=== PATIENT | female | born 1990 | race Caucasian/White ===

== ENCOUNTER 2017-06-10 17:07 | Emergency (ER) | payer BC, OTHER ==
--- NOTE | 2017-06-10 17:47 | ER Document Report ---
ED Medical Screen (RME) - General Chief Complaint: Lower abdominal pain, fever Stated Complaint: ABDOMINAL PAIN Time Seen by Provider: 06/10/17 17:46 TRAVEL OUTSIDE OF THE [place] IN LAST 30 DAYS: No - Related Data Allergies/Adverse Reactions: butorphanol [From Stadol] Allergy (Verified 06/10/17 17:43) Past Medical History Renal/ Medical History: Denies: Hx Peritoneal Dialysis Physical Exam - Vital signs Vitals: Temp Pulse Resp BP Pulse Ox 101.7 F H 106 H 16 128/79 H 100 06/10/17 17:23 06/10/17 17:23 06/10/17 17:23 06/10/17 17:23 06/10/17 17:23 Course - Re-evaluation Re-evalutation: 06/10/17 17:52 27-year-old female who is 15 weeks presents with complaints of fever abdominal pain right rib pain. Patient denies any urinary complaints Patient took 500 mg of Tylenol at 2:30 PM Currently denies any chest pain shortness of breath I have greeted and performed a rapid initial assessment of this patient. A comprehensive ED assessment and evaluation of the patient, analysis of test results and completion of the medical decision making process will be conducted by additional ED providers. PHYSICAL EXAMINATION: GENERAL: Well-appearing, well-nourished and in no acute distress. HEAD: Atraumatic, normocephalic. EYES: Pupils equal round extraocular movements intact, conjunctiva are normal. ENT: Nares patent NECK: Normal range of motion LUNGS: No respiratory distress Musculoskeletal: Normal range of motion NEUROLOGICAL: Normal speech, normal gait. PSYCH: Normal mood, normal affect. SKIN: Warm, Dry, normal turgor, no rashes or lesions noted. - Vital Signs Vital signs: Temp Pulse Resp BP Pulse Ox 101.7 F H 106 H 16 128/79 H 100 06/10/17 17:23 06/10/17 17:23 06/10/17 17:23 06/10/17 17:23 06/10/17 17:23
[2017-06-10] MEDS ORDERED: ACETAMINOPHEN 325 MG TABLET PO ONE ×2 (17:51→18:22)
[2017-06-10 18:21] LABS: ABSOLUTE LYMPHOCYTES (AUTO) 1.4 10^3/uL (0.5-4.7); ABSOLUTE MONOCYTES (AUTO) 0.7 10^3/uL (0.1-1.4); ABSOLUTE NEUT (AUTO) 7.3 10^3/uL (1.7-8.2); BASOPHILS % (AUTO) 0.5 % (0-2); EOSINOPHILS % (AUTO) 0.2 % (0-6); HEMATOCRIT 41.3 % (36.0-47.0); HEMOGLOBIN 14.1 g/dL (12.0-15.5); LYMPHOCYTES % (AUTO) 14.5 % (13-45); MEAN CORPUSCULAR HEMOGLOBIN 30.9 pg (27.0-33.4); MEAN CORPUSCULAR HGB CONC 34.3 g/dL (32.0-36.0); MEAN CORPUSCULAR VOLUME 90 fl (80-97); MONOCYTES % (AUTO) 7.3 % (3-13); RED BLOOD COUNT 4.58 10^6/uL (3.72-5.28); RED CELL DISTRIBUTION WIDTH 14.2 % (11.5-14.0); SEGMENTED NEUTROPHILS % (AUTO) 77.5 % (42-78); WHITE BLOOD COUNT 9.5 10^3/uL (4.0-10.5)
[2017-06-10] MEDS ORDERED: NORMAL SALINE 1000 ML 1,000 ML IV ONE (18:21)
[2017-06-10 18:25] LABS: APPEARANCE,URINE SLIGHTLY-CLOUDY; BILIRUBIN,URINE NEGATIVE (NEGATIVE); GLUCOSE, URINE NEGATIVE (NEGATIVE); KETONES,URINE NEGATIVE (NEGATIVE); LEUKOCYTE ESTERASE,URINE TRACE (NEGATIVE); NITRITE,URINE NEGATIVE (NEGATIVE); PROTEIN,URINE NEGATIVE (NEGATIVE); URINE SPECIFIC GRAVITY 1.024; UROBILINOGEN,URINE NEGATIVE mg/dL (<2.0)
[2017-06-10 18:37] LABS: ALANINE AMINOTRANSFERASE 31 U/L (9-52); ALBUMIN 3.9 g/dL (3.5-5.0); ALKALINE PHOSPHATASE 45 U/L (38-126); ANION GAP 9 (5-19); ASPARTATE AMINO TRANSFERASE 24 U/L (14-36); BILIRUBIN,DIRECT 0.3 mg/dL (0.0-0.4); BILIRUBIN,TOTAL 0.4 mg/dL (0.2-1.3); BLOOD UREA NITROGEN 8 mg/dL (7-20); CALCIUM 9.6 mg/dL (8.4-10.2); CARBON DIOXIDE 24 mmol/L (22-30); CHLORIDE 103 mmol/L (98-107); CREATININE RESULT 0.53 mg/dL (0.52-1.25); GLUCOSE 87 mg/dL (75-110); LIPASE 104.4 U/L (23-300); POTASSIUM 3.6 mmol/L (3.6-5.0); SODIUM 135.8 mmol/L (137-145); TOTAL PROTEIN 7.1 g/dL (6.3-8.2)
--- NOTE | 2017-06-10 18:38 | ER Document Report ---
ED General - General Chief Complaint: Abdominal Pain Stated Complaint: ABDOMINAL PAIN Time Seen by Provider: 06/10/17 17:46 Notes: Patient is a 27-year-old female at 15 weeks by LMP who presents with 36 hours of a fever up to 102.7F at home with associated right lower rib pain. States the pain was present yesterday as a dull, stabbing, severe pain. Nothing improves or worsens the pain. States however the pain has not been present at all today. She has continued however to have a fever today which is what prompted her come to the emergency department. She denies any vomiting, diarrhea, focal abdominal pain, shortness of breath or pleuritic pain. No hemoptysis. No history of similar symptoms in the past. No known sick contacts. She has not seen her primary care doctor regarding today's concerns. Denies any dysuria, cough, shortness of breath, sore throat, vaginal bleeding or discharge. TRAVEL OUTSIDE OF THE [place] IN LAST 30 DAYS: No - Related Data Allergies/Adverse Reactions: butorphanol [From Stadol] Allergy (Verified 06/10/17 17:43) Past Medical History - General Information source: Patient - Social History Smoking Status: Never Smoker Chew tobacco use (# tins/day): No Frequency of alcohol use: None Drug Abuse: None Lives with: Spouse/Significant other Family History: Reviewed & Not Pertinent Renal/ Medical History: Denies: Hx Peritoneal Dialysis Past Surgical History: Reports: Hx Breast Surgery, Hx Section Review of Systems - Review of Systems Notes: Constitutional: Positive for fever. HENT: Negative for sore throat. Eyes: Negative for visual changes. Cardiovascular: Negative for chest pain. Respiratory: Negative for shortness of breath. Gastrointestinal: Negative for abdominal pain, vomiting or diarrhea. Genitourinary: Negative for dysuria. Musculoskeletal: Negative for back pain. Skin: Negative for rash. Neurological: Negative for headaches, weakness or numbness. 10 point ROS negative except as marked above and in HPI. Physical Exam - Vital signs Vitals: Temp Pulse Resp BP Pulse Ox 101.7 F H 106 H 16 128/79 H 100 06/10/17 17:23 06/10/17 17:23 06/10/17 17:23 06/10/17 17:23 06/10/17 17:23 Interpretation: Tachycardic, Febrile Notes: PHYSICAL EXAMINATION: GENERAL: Well-appearing, well-nourished and in no acute distress. HEAD: Atraumatic, normocephalic. EYES: Pupils equal round and reactive to light, extraocular movements intact, sclera anicteric, conjunctiva are normal. ENT: nares patent, oropharynx clear without exudates. Moist mucous membranes. NECK: Normal range of motion, supple without lymphadenopathy LUNGS: Breath sounds clear to auscultation bilaterally and equal. No wheezes rales or rhonchi. HEART: Regular rate and rhythm without murmurs ABDOMEN: Soft, gravid uterus, nontender, normoactive bowel sounds. No guarding , no rebound. No masses appreciated. EXTREMITIES: Normal range of motion, no pitting or edema. No cyanosis. NEUROLOGICAL: No focal neurological deficits. Moves all extremities spontaneously and on command. PSYCH: Normal mood, normal affect. SKIN: Warm, Dry, normal turgor, no rashes or lesions noted. Course - Re-evaluation Re-evalutation: 06/10/17 18:35 Patient presents with 24 hours of right lower rib pain and fever. She is currently 15 weeks by dates. Patient is well in appearance on initial exam in no distress and denies any active pain at this time. In triage she was febrile at 101.7 with mild tachycardia at 106. Her abdominal exam is completely benign without any focal tenderness, rebound or guarding. She has no tenderness in the right upper quadrant, negative Irving's sign. She has no right lower quadrant tenderness rebound or guarding. No flank tenderness. She denies any respiratory symptoms, sore throat, vomiting or diarrhea. Diagnostic considerations include pyelonephritis, acute cholecystitis, cholangitis, cholestasis of , acute hepatitis, right lower lobe pneumonia, and much less likely an acute pulmonary embolus. Unfortunately, patient does not appear to clinically fit with any of these diagnoses at this time. She denies any pleuritic pain, has no pain at time of assessment, no tachypnea, and denies any shortness of breath. This makes the diagnosis of an acute pulmonary embolus unlikely. Likewise patient denies any sputum production or cough making diagnosis of a pneumonia unlikely. Her urinalysis is unremarkable and she denies dysuria making acute pyelonephritis improbable. Again no right upper quadrant abdominal tenderness on examination she denies any association of her pain yesterday with p.o. intake. She is also quite early in her for cholestasis of . Overall low clinical suspicion for cholangitis or acute cholecystitis given patient's overall well appearance and again no tenderness on abdominal exam. Will proceed with a chest x-ray and right upper quadrant ultrasound to better clarify to see if there is any evidence of an acute pneumonia or any acute biliary pathology. 06/10/17 20:24 Laboratories all unremarkable, right upper quadrant ultrasound without evidence of acute cholecystitis or cholestasis of , chest x-ray is clear. OB ultrasound unremarkable. Patient's vitals have normalized. She continues to have any pain, dyspnea or tachycardia. I discussed this case with Dr. Lofton the [employer] on-call who is in agreement that the current workup is appropriate and does not have any additional suggestions at this time. She has recommended that we do start empiric treatment for possible urinary tract infection given trace leuk esterase and a small amount of white blood cells in the urine. I have discussed with the patient at length that we are uncertain if the exact diagnosis at this time and that she needs to be vigilant and return to the emergency department should she have any new or worsening symptoms. She will also follow-up in the women's clinic tomorrow. At this time will discharge with return precautions and follow-up recommendations. Verbal discharge instructions given a the bedside and opportunity for questions given. Medication warnings reviewed. Patient is in agreement with this plan and has verbalized understanding of return precautions and the need for primary care follow-up in the next 24-72 hours. - Vital Signs Vital signs: Temp Pulse Resp BP Pulse Ox 99.8 F 97 20 109/64 101 H 06/10/17 19:48 06/10/17 19:48 06/10/17 19:48 06/10/17 19:48 06/10/17 19:48 - Laboratory Result Diagrams: 06/10/17 18:00 06/10/17 18:00 Laboratory results interpreted by me: 06/10/17 06/10/17 06/10/17 18:00 18:00 18:00 RDW 14.2 H Sodium 135.8 L Ur Leukocyte Esterase TRACE H Urine Ascorbic Acid 40 H Urine HCG, Qual 06/10/17 18:00 RDW Sodium Ur Leukocyte Esterase Urine Ascorbic Acid Urine HCG, Qual POSITIVE H - Diagnostic Test Radiology reviewed: Image reviewed, Reports reviewed Radiology results interpreted by me: 06/10/17 20:25 Chest x-ray: No acute infiltrate or pneumothorax Discharge - Discharge Clinical Impression: Right flank pain Fever Qualifiers: Fever type: unspecified Qualified Code(s): R50.9 - Fever, unspecified Condition: Good Disposition: HOME, SELF-CARE Additional Instructions: The exact cause of your fever is uncertain at this time but may be related to a urinary tract infection. Please take Keflex as prescribed. Please contact women's clinic in the morning to schedule a follow-up appointment. Tell them that Dr. Lofton was consulted by your ER physician and has requested to be evaluated tomorrow in clinic. Return to the emergency department immediately if you have any new or worsening symptoms as we are uncertain of what is causing her fever at this time. Prescriptions: Cephalexin Monohydrate [Keflex 500 mg Capsule] 500 mg PO Q6H 5 Days capsule
[2017-06-10 19:49] VITALS: BP 109/64
--- NOTE | 2017-06-10 19:54 | RADIOLOGY REPORT (SQ) ---
EXAM DESCRIPTION: U/S ABDOMEN LIMITED W/O DOP COMPLETED DATE/TIME: 06/10/2017 7:42 pm REASON FOR STUDY: ruq pain, fever, preg COMPARISON: None. TECHNIQUE: Dynamic and static grayscale images acquired of the abdomen and recorded on PACS. Additio nal selected color Doppler and spectral images recorded. LIMITATIONS: Study is limited somewhat due to overlying bowel gas. FINDINGS: PANCREAS: Limited visualization. No obvious masses. LIVER: No masses. Echotexture normal. LIVER VASCULATURE: Normal directional flow of the main portal vein and hepatic veins. GALLBLADDER: Gallbladder is not well evaluated due to its relatively contracted state. No stones. No rmal wall thickness. No pericholecystic fluid. ULTRASOUND-DETECTED MARRUFO'S SIGN: Negative. INTRAHEPATIC DUCTS AND COMMON DUCT: CBD and intrahepatic ducts normal caliber. No filling defects. INFERIOR VENA CAVA: Normal flow. AORTA: Limited visualization. No obvious aneurysm. RIGHT KIDNEY: Normal size. Normal echogenicity. No solid or suspicious masses. No hydronephrosis. No calcifications. PERITONEAL AND RIGHT PLEURAL SPACE: No ascites or effusions. OTHER: No other significant findings. IMPRESSION: Somewhat limited study as noted above. No significant intra-abdominal abnormalities wer e identified. Other findings as noted above. TECHNICAL DOCUMENTATION: JOB ID: [id number] [employer]- All Rights Reserved
--- NOTE | 2017-06-10 19:55 | RADIOLOGY REPORT (SQ) ---
EXAM DESCRIPTION: CHEST SINGLE VIEW COMPLETED DATE/TIME: 06/10/2017 7:45 pm REASON FOR STUDY: right lower rib pain, fever COMPARISON: None. EXAM PARAMETERS: NUMBER OF VIEWS: One view. TECHNIQUE: Single frontal radiographic view of the chest acquired. RADIATION DOSE: NA LIMITATIONS: None. FINDINGS: LUNGS AND PLEURA: No opacities, masses or pneumothorax. No pleural effusion. MEDIASTINUM AND HILAR STRUCTURES: No masses. Contour normal. HEART AND VASCULAR STRUCTURES: Heart normal in size. Normal vasculature. BONES: No acute findings. HARDWARE: None in the chest. OTHER: No other significant finding. IMPRESSION: NO ACUTE RADIOGRAPHIC FINDING IN THE CHEST. TECHNICAL DOCUMENTATION: JOB ID: [id number]
--- NOTE | 2017-06-10 20:02 | RADIOLOGY REPORT (SQ) ---
EXAM DESCRIPTION: U/S OB 14+ TRNABD 1GES W/O DOP COMPLETED DATE/TIME: 06/10/2017 7:52 pm REASON FOR STUDY: abdominal pain, preg, no prior us COMPARISON: None. TECHNIQUE: Static and Dynamic grayscale imaging performed of gravid uterus using transabdominal appr oach. Additional selected color Doppler and spectral images recorded. All stored on PACS. LIMITATIONS: None. FINDINGS: EGA: 15 weeks 2 days OSVALDO: 11/30/2017 EFW: Not calculated PERCENTILE: Not calculated TYRA: Largest pocket 3.2 cm PLACENTA: Anterior PRESENTATION: Breech ANATOMY: HEART RATE: 133 beats per minute. FOUR CHAMBER HEART: Visualized. THREE VESSEL CORD: Not visualized CORD INSERTION: Visualized. KIDNEYS AND BLADDER: Visualized. Appear normal. STOMACH: Visualized. Appears normal. SPINE: Normal as visualized. BRAIN AND LATERAL VENTRICLES: Visualized. Appear normal. OTHER: No other significant finding. MATERNAL ADNEXA: Maternal ovaries not visualized. CERVICAL LENGTH: 3.6 cm Closed. OTHER: No other significant finding. IMPRESSION: LIVING INTRAUTERINE . ESTIMATED GESTATIONAL AGE 15 weeks 2 days NO VISUALIZED ANOMALIES. Trimester of : Second trimester - 13 weeks 1 day to 27 weeks 6 days. TECHNICAL DOCUMENTATION: JOB ID: [id number] [employer]- All Rights Reserved
[2017-06-10] MEDS ORDERED: CEPHALEXIN 500 MG CAPSULE PO ONE (20:25)
== END 2017-06-10 20:58 | disposition home or self-care (01) ==
LOC: ER 17:07
DX: O26.892 Other specified pregnancy related conditions, second trimester (principal); R10.9 Unspecified abdominal pain; R50.9 Fever, unspecified; R00.0 Tachycardia, unspecified; Z3A.15 15 weeks gestation of pregnancy
CPT/HCPCS: 99284; 96360; 36415; 87086; 83690; 85025; 81025; 87088; 80053; 81001; 71010; 76805; 76705; J7030

== ENCOUNTER 2017-06-22 18:54 | Emergency (ER) | payer BC ==
[2017-06-22 19:10] VITALS: BP 126/77
--- NOTE | 2017-06-22 20:12 | ER Document Report ---
ED General - General Chief Complaint: Abdominal Cramping Stated Complaint: ABDOMINAL PAIN Time Seen by Provider: 06/22/17 19:51 TRAVEL OUTSIDE OF THE [place] IN LAST 30 DAYS: No - HPI Notes: Patient is a 17 week 27-year-old female who presents the ED complaining of pelvic cramping 1 day. Patient states that she called her OB/ GERMAN PROFESSOR who recommended that she comes the ED for evaluation. Pt states that she did have a pap and cultures performed 2 days ago and was told today that those labs were all unremarkable including blood work. Patient states she was seen on 10 June with a fever and was discharged in stable condition. Patient states that that fever/illness has since resolved. The cramping is intermittent. She still eating and drinking without any difficulties. She has not taken any medications for her symptoms. She has not noticed any vaginal bleeding or discharge. She still urinating normally and having normal bowel movements. Denies any headache, fever, URI, sore throat, chest pain, palpitations, syncope, cough, shortness of breath, wheeze, dyspnea, nausea/ vomiting/diarrhea, urinary retention, dysuria, hematuria, or rash. - Related Data Allergies/Adverse Reactions: butorphanol [From Stadol] Allergy (Verified 06/10/17 17:43) Past Medical History - Social History Smoking Status: Never Smoker Family History: Reviewed & Not Pertinent Patient has suicidal ideation: No Patient has homicidal ideation: No Renal/ Medical History: Denies: Hx Peritoneal Dialysis Past Surgical History: Reports: Hx Breast Surgery, Hx Section Review of Systems - Review of Systems Notes: REVIEW OF SYSTEMS: CONSTITUTIONAL : Denies fever, chills, or sweats. Denies recent illness. EENT: Denies eye, ear, throat, or mouth pain or symptoms. Denies nasal or sinus congestion or discharge. Denies throat, tongue, or mouth swelling or difficulty swallowing. CARDIOVASCULAR: Denies chest pain. Denies palpitations or racing or irregular heart beat. Denies ankle edema. RESPIRATORY: Denies cough, cold, or chest congestion. Denies shortness of breath, difficulty breathing, or wheezing. GASTROINTESTINAL: see hpi GENITOURINARY: Denies difficulty urinating, painful urination, burning, frequency, blood in urine, or discharge. FEMALE GENITOURINARY: Denies vaginal bleeding, heavy or abnormal periods, irregular periods. Denies vaginal discharge or odor. MUSCULOSKELETAL: Denies back or neck pain or stiffness. Denies joint pain or swelling. SKIN: Denies rash, lesions or sores. NEUROLOGICAL: Denies confusion or altered mental status. Denies passing out or loss of consciousness. Denies dizziness or lightheadedness. Denies headache. Denies weakness or paralysis or loss of use of either side. Denies problems with gait or speech. Denies sensory loss, numbness, or tingling. Denies seizures. PSYCHIATRIC: Denies anxiety or stress. Denies depression, suicidal ideation, or homicidal ideation. ALL OTHER SYSTEMS REVIEWED AND NEGATIVE. Dictation was performed using [employer] voice recognition software Physical Exam - Vital signs Vitals: Temp Pulse Resp BP Pulse Ox 99 F 89 20 126/77 H 99 06/22/17 19:07 06/22/17 19:07 06/22/17 19:07 06/22/17 19:07 06/22/17 19:07 Notes: PHYSICAL EXAMINATION: GENERAL: Well-appearing, well-nourished and in no acute distress. LUNGS: Breath sounds clear to auscultation bilaterally and equal. No wheezes rales or rhonchi. HEART: Regular rate and rhythm without murmurs, rubs, gallops. ABDOMEN: Soft, nontender, nondistended abdomen. No guarding, no rebound. No masses appreciated. Normal bowel sounds present. No CVA tenderness bilaterally. Extremities: No cyanosis, clubbing, or edema b/l. Peripheral pulses 2+. Capillary refill less than 3 seconds. NEUROLOGICAL: Normal speech, normal gait. Normal sensory, motor exams PSYCH: Normal mood, normal affect. SKIN: Warm, Dry, normal turgor, no rashes or lesions noted. Course - Re-evaluation Re-evalutation: 06/22/17 23:25 Patient is an afebrile, well-hydrated, 17 wk , 27-year-old female who presents the ED with pelvic cramping, not otherwise specified. Vitals are stable. PE otherwise unremarkable at this time. Pt had a pelvic performed with labs 2 days ago which were unremarkable. Urinalysis once unremarkable for any acute pathology. heart tones wnl. Transvaginal ultrasound showed an intrauterine without any acute pathology. Low suspicion/risk for acute appendicitis, bowel obstruction, acute cholecystitis, acute cholangitis, perforated diverticulitis, incarcerated hernia, pancreatitis, perforated ulcer, peritonitis, sepsis, pelvic inflammatory disease, ectopic , tubo- ovarian abscess, ovarian torsion, or other systemic emergent condition at this time. Patient is aware that her condition can change from initial presentation and she needs to monitor symptoms closely and seek medical attention if any acute changes. Conservative measures otherwise for symptoms. Recheck with OBGYN in 1-2 days. Recheck with your PCM in 2-3 days. Return to the ED with any worsening/concerning symptoms otherwise as reviewed in discharge. Patient is in agreement. - Vital Signs Vital signs: Temp Pulse Resp BP Pulse Ox 99 F 89 20 126/77 H 99 06/22/17 19:07 06/22/17 19:07 06/22/17 19:07 06/22/17 19:07 06/22/17 19:07 - Laboratory Laboratory results interpreted by me: 06/22/17 20:42 Urine HCG, Qual POSITIVE H Discharge - Discharge Clinical Impression: Pelvic cramping Condition: Stable Disposition: HOME, SELF-CARE Instructions: Pelvic Pain in ([facility]) Additional Instructions: Maintain adequate fluid and food intake Tylenol as needed for discomfort Cool compresses may help Warm compresses may help Monitor symptoms closely for any acute changes Recheck with the AUT[employer]OTIVE [employer]S COUNTER ASSISTANT in the next 1-2 days recheck with your PCM this week as well Return to the ED with any worsening symptoms and/or development of fever, headache, chest pain, palpitations, syncope, shortness of breath, trouble breathing, abdominal pain, n/v/d, blood in stool/urine, loss of control of bowel /bladder, urinary retention, vaginal bleeding/odor/discharge, worsening pain, or other worsening symptoms that are concerning to you. Referrals: JUAN MIGUEL MANTILLA MD [Primary Care Provider] - Follow up in 3-5 days [facility] - 06/23/17
[2017-06-22 20:54] LABS: APPEARANCE,URINE CLEAR; BILIRUBIN,URINE NEGATIVE (NEGATIVE); GLUCOSE, URINE NEGATIVE (NEGATIVE); KETONES,URINE NEGATIVE (NEGATIVE); LEUKOCYTE ESTERASE,URINE NEGATIVE (NEGATIVE); NITRITE,URINE NEGATIVE (NEGATIVE); PROTEIN,URINE NEGATIVE (NEGATIVE); URINE SPECIFIC GRAVITY 1.005; UROBILINOGEN,URINE NEGATIVE mg/dL (<2.0)
--- NOTE | 2017-06-22 21:28 | RADIOLOGY REPORT (SQ) ---
EXAM DESCRIPTION: U/S OB 14+ TA/1 GEST W/DOPPLER COMPLETED DATE/TIME: 06/22/2017 9:18 pm REASON FOR STUDY: pelvic cramping COMPARISON: 06/10/2017 TECHNIQUE: Static and Dynamic grayscale imaging performed of gravid uterus using transabdominal appr oach. Additional selected color Doppler and spectral images recorded. All stored on PACS. LIMITATIONS: Early gestational age limits evaluation of anatomy. FINDINGS: EGA: 17 weeks 1 day OSVALDO: 06/10/2017 EFW: 190 grams PERCENTILE: Not applicable. Fetus less than or equal to 20 weeks gestation. TYRA: Adequate amount. PLACENTA: Anterior. No previa. PRESENTATION: Breech. ANATOMY: No gross abnormality. MATERNAL ADNEXA: Maternal ovaries not visualized. CERVICAL LENGTH: 3 cm Closed. OTHER: No other significant finding. IMPRESSION: LIVING INTRAUTERINE . ESTIMATED GESTATIONAL AGE 17 WEEKS 4 DAYS NO VISUALIZED ANOMALIES HOWEVER RECOMMEND FORMAL ANATOMIC SURVEY BETWEEN 20 AND 22 WEEKS GESTATIONAL AGE. Trimester of : Second trimester - 13 weeks 1 day to 27 weeks 6 days. TECHNICAL DOCUMENTATION: JOB ID: [id number] [employer]- All Rights Reserved
== END 2017-06-22 23:10 | disposition home or self-care (01) ==
LOC: ER 18:54
DX: O26.892 Other specified pregnancy related conditions, second trimester (principal); R10.2 Pelvic and perineal pain; Z3A.17 17 weeks gestation of pregnancy; Z88.5 Allergy status to narcotic agent
CPT/HCPCS: 76805; 81001; 81025; 93976; 99284

== ENCOUNTER 2017-09-15 14:15 | Outpatient (CLI) | payer BC ==
[2017-09-15 14:57] LABS: APPEARANCE,URINE SLIGHTLY-CLOUDY; BILIRUBIN,URINE NEGATIVE (NEGATIVE); GLUCOSE, URINE NEGATIVE (NEGATIVE); KETONES,URINE NEGATIVE (NEGATIVE); LEUKOCYTE ESTERASE,URINE SMALL (NEGATIVE); NITRITE,URINE NEGATIVE (NEGATIVE); PROTEIN,URINE NEGATIVE (NEGATIVE); URINE SPECIFIC GRAVITY 1.028; UROBILINOGEN,URINE NEGATIVE mg/dL (<2.0)
[2017-09-15 15:11] LABS: URINE BARBITURATES SCREEN NEGATIVE; URINE METHADONE SCREEN NEGATIVE; URINE OPIATES LOW NEGATIVE; URINE PHENCYCLIDINE SCREEN NEGATIVE
--- NOTE | 2017-09-15 17:04 | RADIOLOGY REPORT (SQ) ---
EXAM DESCRIPTION: U/S OB LIMITED COMPLETED DATE/TIME: 09/15/2017 4:41 pm REASON FOR STUDY: 29 weeks with ctx, cervical length COMPARISON: None. TECHNIQUE: Limited transvaginal grayscale ultrasound for evaluation of specific requested obstetrica l parameters. LIMITATIONS: None. FINDINGS: CERVICAL LENGTH: 4.4 cm Closed. FHR: 141 beats per minute. PRESENTATION: Cephalic. OTHER: Anterior placenta greater than 2 cm from the internal cervical os. IMPRESSION: LIMITED OBSTETRICAL ULTRASOUND WITH MEASURED PARAMETERS DELINEATED ABOVE. Trimester of : 3rd trimester. Estimated gestational age 29 weeks, 5 days. TECHNICAL DOCUMENTATION: JOB ID: [id number] [employer]- All Rights Reserved
== END 2017-09-15 17:15 | disposition home or self-care (01) ==
LOC: LC 14:15
PROVIDERS: ATTEND Obstetrics & Gynecology
PROC: 4A1HXCZ Monitoring of Products of Conception, Cardiac Rate, External Approach (ICD-10-PCS; principal; 2017-09-15)
DX: O47.03 False labor before 37 completed weeks of gestation, third trimester (principal); Z3A.29 29 weeks gestation of pregnancy
CPT/HCPCS: 76815; 80307; 81001

== ENCOUNTER 2017-10-16 00:45 | Emergency (ER) | payer BC ==
[2017-10-16 01:00] VITALS: BP 124/74
--- NOTE | 2017-10-16 02:04 | ER Document Report ---
ED Extremity Problem, Upper - General Chief Complaint: Shoulder Pain Stated Complaint: SHOULDER PAIN Time Seen by Provider: 10/16/17 02:01 Mode of Arrival: Ambulatory Information source: Patient Notes: 27 years old female who is 32 weeks presents today with left shoulder pain and left trapezoid muscle region pain for the last few hours. She says from 7:30 last evening. She has been evaluated by computer system technician for a palpitation and heart murmur. Has no history of any coronary artery disease, non-smoker. Pain is increased in intensity by movement of the upper shoulder. Denies any injuries except she has 4-year-old child whom she lived frequently. TRAVEL OUTSIDE OF THE [place] IN LAST 30 DAYS: No - Related Data Allergies/Adverse Reactions: butorphanol [From Stadol] Allergy (Verified 06/10/17 17:43) Past Medical History - Social History Smoking Status: Smoker,Current Status Unk Family History: Reviewed & Not Pertinent Renal/ Medical History: Denies: Hx Peritoneal Dialysis Past Surgical History: Reports: Hx Breast Surgery, Hx Section Review of Systems - Review of Systems Notes: REVIEW OF SYSTEMS: CONSTITUTIONAL : Denies fever, chills, or sweats. Denies recent illness. EENT: Denies eye, ear, throat, or mouth pain or symptoms. Denies nasal or sinus congestion or discharge. Denies throat, tongue, or mouth swelling or difficulty swallowing. CARDIOVASCULAR: Denies chest pain. Denies palpitations or racing or irregular heart beat. Denies ankle edema. RESPIRATORY: Denies cough, cold, or chest congestion. Denies shortness of breath, difficulty breathing, or wheezing. GASTROINTESTINAL: Denies abdominal pain or distention. Denies nausea, vomiting , or diarrhea. Denies blood in vomitus, stools, or per rectum. Denies black, tarry stools. Denies constipation. GENITOURINARY: Denies difficulty urinating, painful urination, burning, frequency, blood in urine, or discharge. FEMALE GENITOURINARY: Denies vaginal bleeding, heavy or abnormal periods, irregular periods. Denies vaginal discharge or odor. MUSCULOSKELETAL: SKIN: Denies rash, lesions or sores. HEMATOLOGIC : Denies easy bruising or bleeding. LYMPHATIC: Denies swollen, enlarged glands. NEUROLOGICAL: Denies confusion or altered mental status. Denies passing out or loss of consciousness. Denies dizziness or lightheadedness. Denies headache. Denies weakness or paralysis or loss of use of either side. Denies problems with gait or speech. Denies sensory loss, numbness, or tingling. Denies seizures. PSYCHIATRIC: Denies anxiety or stress. Denies depression, suicidal ideation, or homicidal ideation. ALL OTHER SYSTEMS REVIEWED AND NEGATIVE. PHYSICAL EXAMINATION: GENERAL: Well-appearing, well-nourished and in no acute distress. HEAD: Atraumatic, normocephalic. EYES: Pupils equal round and reactive to light, extraocular movements intact, conjunctiva are normal. ENT: Nares patent, oropharynx clear without exudates. Moist mucous membranes. NECK: Normal range of motion, supple without lymphadenopathy LUNGS: Breath sounds clear to auscultation bilaterally and equal. No wheezes rales or rhonchi. HEART: Regular rate and rhythm without murmurs Chest wall-examination of the trapezoid muscle distribution on the left side particularly along the scapula sharp tenderness were elicited. And also left paraspinal muscle region. ABDOMEN: Soft, nontender, nondistended abdomen. No guarding, no rebound. No masses appreciated. Female : deferred Musculoskeletal: Normal range of motion, no pitting or edema. No cyanosis. NEUROLOGICAL: Cranial nerves grossly intact. Normal speech, normal gait. Normal sensory, motor exams PSYCH: Normal mood, normal affect. SKIN: Warm, Dry, normal turgor, no rashes or lesions noted. Dictation was performed using [employer] voice recognition software Physical Exam - Vital signs Vitals: Temp Pulse Resp BP Pulse Ox 97.8 F 90 18 124/74 100 10/16/17 00:57 10/16/17 00:57 10/16/17 00:57 10/16/17 00:57 10/16/17 00:57 Course - Re-evaluation Re-evalutation: 10/16/17 02:03 She was explained the reason for the pain and, her was requested to give a gentle massage over the trapezoid muscle distribution on the left side. Applying BenGay on and off and take Tylenol for pain. - Vital Signs Vital signs: Temp Pulse Resp BP Pulse Ox 97.8 F 90 18 124/74 100 10/16/17 00:57 10/16/17 00:57 10/16/17 00:57 10/16/17 00:57 10/16/17 00:57 Discharge - Discharge Clinical Impression: Trapezoid ligament sprain Qualifiers: Encounter type: initial encounter Laterality: left Qualified Code(s): S43.82XA - Sprain of other specified parts of left shoulder girdle, initial encounter Disposition: HOME, SELF-CARE Instructions: Sprain ([facility]) Referrals: JUAN MIGUEL MANTILLA MD [Primary Care Provider] - Follow up as needed
--- NOTE | 2017-10-16 10:59 | EKG REPORT ---
SEVERITY:- BORDERLINE ECG - SINUS RHYTHM PROBABLE LEFT ATRIAL ABNORMALITY : Confirmed by: Britta Graff MD 16-Oct-2017 10:58:07
== END 2017-10-16 02:18 | disposition home or self-care (01) ==
LOC: ER 00:45
DX: S43.82XA Sprain of other specified parts of left shoulder girdle, initial encounter (principal); X58.XXXA Exposure to other specified factors, initial encounter; M25.512 Pain in left shoulder; Z88.8 Allergy status to other drugs, medicaments and biological substances
CPT/HCPCS: 93005; 93010; 99283

== ENCOUNTER 2017-11-21 10:21 | Outpatient (CLI) | payer BC ==
[2017-11-21 11:20] LABS: AMNISURE (ROM) NEGATIVE (NEGATIVE)
[2017-11-21 11:31] LABS: APPEARANCE,URINE SLIGHTLY-CLOUDY; BILIRUBIN,URINE NEGATIVE (NEGATIVE); COLOR,URINE YELLOW; GLUCOSE, URINE NEGATIVE (NEGATIVE); KETONES,URINE 20 mg/dL (NEGATIVE); LEUKOCYTE ESTERASE,URINE TRACE (NEGATIVE); NITRITE,URINE NEGATIVE (NEGATIVE); PROTEIN,URINE 30 mg/dL (NEGATIVE)
[2017-11-21 11:57] LABS: URINE AMPHETAMINES SCREEN NEGATIVE; URINE BARBITURATES SCREEN NEGATIVE; URINE BENZODIAZEPINES SCREEN NEGATIVE; URINE COCAINE SCREEN NEGATIVE; URINE MARIJUANA (THC) SCREEN NEGATIVE; URINE METHADONE SCREEN NEGATIVE; URINE PHENCYCLIDINE SCREEN NEGATIVE
[2017-11-21 12:00] LABS: A TYPE INFLUENZA AG POSITIVE (NEGATIVE); B INFLUENZA AG NEGATIVE (NEGATIVE)
[2017-11-21 12:22] LABS: URINE CREATININE 240.8 mg/dL (16-327); URINE PROTEIN 7.2 mg/dL (<12)
[2017-11-21 12:58] LABS: ABSOLUTE LYMPHOCYTES (AUTO) 0.9 10^3/uL (0.5-4.7); ABSOLUTE MONOCYTES (AUTO) 0.8 10^3/uL (0.1-1.4); ABSOLUTE NEUT (AUTO) 8.4 10^3/uL (1.7-8.2); BASOPHILS % (AUTO) 0.4 % (0-2); EOSINOPHILS % (AUTO) 0.2 % (0-6); HEMATOCRIT 35.2 % (36.0-47.0); LYMPHOCYTES % (AUTO) 9.2 % (13-45); MEAN CORPUSCULAR HEMOGLOBIN 29.1 pg (27.0-33.4); MEAN CORPUSCULAR HGB CONC 34.1 g/dL (32.0-36.0); MEAN CORPUSCULAR VOLUME 85 fl (80-97); MONOCYTES % (AUTO) 8.3 % (3-13); PLATELET COUNT 231 10^3/uL (150-450); RED BLOOD COUNT 4.13 10^6/uL (3.72-5.28); RED CELL DISTRIBUTION WIDTH 16.7 % (11.5-14.0); SEGMENTED NEUTROPHILS % (AUTO) 81.9 % (42-78); TOTAL CELLS COUNTED % (AUTO) 100 %; WHITE BLOOD COUNT 10.2 10^3/uL (4.0-10.5)
[2017-11-21 13:14] LABS: ALANINE AMINOTRANSFERASE 48 U/L (9-52); ALBUMIN 3.2 g/dL (3.5-5.0); ALKALINE PHOSPHATASE 166 U/L (38-126); AMYLASE 55 U/L (30-110); ANION GAP 7 (5-19); ASPARTATE AMINO TRANSFERASE 36 U/L (14-36); BILIRUBIN,DIRECT 0.1 mg/dL (0.0-0.4); BILIRUBIN,TOTAL 0.6 mg/dL (0.2-1.3); BLOOD UREA NITROGEN 4 mg/dL (7-20); CALCIUM 9.3 mg/dL (8.4-10.2); CARBON DIOXIDE 21 mmol/L (22-30); CHLORIDE 105 mmol/L (98-107); GLUCOSE 57 mg/dL (75-110); LDH 449 U/L (313-618); LIPASE 50.1 U/L (23-300); POTASSIUM 4.1 mmol/L (3.6-5.0); SODIUM 133.2 mmol/L (137-145)
[2017-11-21] MEDS ORDERED: OSELTAMIVIR PHOSPHATE 75 MG CAPSULE PO ONE (13:30)
[2017-11-21] MEDS ORDERED: ACETAMINOPHEN 325 MG TABLET ONE (13:51)
--- NOTE | 2017-11-23 09:59 | Non Stress Test Report ---
Non Stress Test Datetime Report Generated by CPN: 11/23/2017 09:59 DEMOGRAPHIC EGA NST: 39.2 INDICATION Indication for Study: Ordered by Provider MONITORING Time on Monitor: 11/21/2017 14:33 Time off Monitor: 11/21/2017 14:58 NST Duration: 25 NST INTERVENTIONS NST Interventions: PO Hydration; IV Fluids; Reposition Patient Physician Notified NST: Dr Lofton BABY A: [id number] BABY A Movement : Present Contraction Frequency : occasional FHR Baseline : 140 Accelerations : 15X15 Decelerations : None Variability : Moderate 6-25bpm NST Review: Meets Criteria for Reactive NST NST Review and Verified By : Jose Stringer RNC NST Results: Reactive NST REPORT Report Trigger: Send Report
[2017-11-23 11:04] LABS: 24 HOUR URINE PROTEIN RESULT 145 mg/day (42-225); URINE PROTEIN 12.7 mg/dL (<12)
== END 2017-11-21 14:56 | disposition home or self-care (01) ==
LOC: LC 10:21
PROVIDERS: ATTEND Student in an Organized Health Care Education/Training Program
PROC: 4A1HXCZ Monitoring of Products of Conception, Cardiac Rate, External Approach (ICD-10-PCS; principal; 2017-11-21)
DX: O14.93 Unspecified pre-eclampsia, third trimester (principal); O99.513 Diseases of the respiratory system complicating pregnancy, third trimester; J11.1 Influenza due to unidentified influenza virus with other respiratory manifestations; Z3A.39 39 weeks gestation of pregnancy
CPT/HCPCS: 59025; 84112; 36415; 82150; 83615; 83690; 84156; 82570; 85025; 81005; 80053; 80307; 82239; 87804; J3490

== ENCOUNTER 2017-11-23 10:10 | Outpatient (CLI) | payer BC ==
[2017-11-23 11:15] LABS: APPEARANCE,URINE CLEAR; BILIRUBIN,URINE NEGATIVE (NEGATIVE); COLOR,URINE YELLOW; GLUCOSE, URINE NEGATIVE (NEGATIVE); KETONES,URINE NEGATIVE (NEGATIVE); LEUKOCYTE ESTERASE,URINE MODERATE (NEGATIVE); NITRITE,URINE NEGATIVE (NEGATIVE); PROTEIN,URINE NEGATIVE (NEGATIVE); URINE SPECIFIC GRAVITY 1.012
[2017-11-23 11:30] LABS: URINE AMPHETAMINES SCREEN NEGATIVE; URINE BARBITURATES SCREEN NEGATIVE; URINE BENZODIAZEPINES SCREEN NEGATIVE; URINE COCAINE SCREEN NEGATIVE; URINE MARIJUANA (THC) SCREEN NEGATIVE; URINE METHADONE SCREEN NEGATIVE; URINE PHENCYCLIDINE SCREEN NEGATIVE
[2017-11-23 11:47] LABS: UR PRO/CREAT RATIO RESULT 0.1 mg/mg (0.0-0.2); URINE CREATININE 118.5 mg/dL (16-327); URINE PROTEIN 11.5 mg/dL (<12)
== END 2017-11-23 10:54 | disposition home or self-care (01) ==
LOC: LC 10:10
PROVIDERS: ATTEND Obstetrics & Gynecology
PROC: 4A1HXCZ Monitoring of Products of Conception, Cardiac Rate, External Approach (ICD-10-PCS; principal; 2017-11-23)
DX: Z36.89 Encounter for other specified antenatal screening (principal); Z3A.39 39 weeks gestation of pregnancy
CPT/HCPCS: 59025; 80307; 81001; 82570; 84156

== ENCOUNTER 2017-11-29 16:20 | Inpatient (IN) | payer BC ==
--- NOTE | 2017-11-29 16:25 | Non Stress Test Report ---
Non Stress Test Datetime Report Generated by CPN: 11/29/2017 16:25 DEMOGRAPHIC Test Number: 1 EGA NST: 39.4 INDICATION Indication for Study: Ordered by Provider Indication for Study (NST) Other: BP check MONITORING Monitor Explained: Monitor Explained; Test Explained; Patient Verbalized Understanding Time on Monitor: 11/23/2017 10:28 Time off Monitor: 11/23/2017 10:50 NST Duration: 22 NST INTERVENTIONS NST Interventions: PO Hydration Physician Notified NST: Lyndsey King, CNM/ [place] BABY A: [id number] BABY A Movement : Present Contraction Frequency : 0 FHR Baseline : 115 Accelerations : 15X15 Decelerations : None Variability : Moderate 6-25bpm NST Review: Meets Criteria for Reactive NST NST Review and Verified By : ADRIANA Heredia NSRyann Results: Reactive NST REPORT Report Trigger: Send Report
[2017-11-29 17:41] LABS: APPEARANCE,URINE CLEAR; BILIRUBIN,URINE NEGATIVE (NEGATIVE); COLOR,URINE YELLOW; GLUCOSE, URINE NEGATIVE (NEGATIVE); KETONES,URINE NEGATIVE (NEGATIVE); LEUKOCYTE ESTERASE,URINE NEGATIVE (NEGATIVE); NITRITE,URINE NEGATIVE (NEGATIVE); PROTEIN,URINE NEGATIVE (NEGATIVE); URINE SPECIFIC GRAVITY 1.008; UROBILINOGEN,URINE NEGATIVE mg/dL (<2.0)
[2017-11-29] MEDS ORDERED: RINGERS SOLUTION,LACTATED 1,000 ML IV ONE (17:44)
[2017-11-29] MEDS ORDERED: RINGERS SOLUTION,LACTATED 1,000 ML IV PRN (17:44)
[2017-11-29] MEDS ORDERED: PENICILLIN G POTASSIUM 5,000,000 UNIT in DEXTROSE 5%-WATER 100 ML IV ONE (17:44)
[2017-11-29] MEDS ORDERED: LIDOCAINE 1% INJ-PF (10 MG/ML) 30 ML SDV ONE (17:50)
[2017-11-29] MEDS ORDERED: OXYTOCIN/NORMAL SALINE 20 UNIT/1,000 ML RTUINJ ONE (17:50)
[2017-11-29] MEDS ORDERED: PENICILLIN G-K 5 MILLION UNIT VIAL ONE ×2 (17:50→21:36)
[2017-11-29] MEDS ORDERED: MISOPROSTOL 0.2 MG TABLET ONE (17:50)
[2017-11-29 18:06] LABS: URINE AMPHETAMINES SCREEN NEGATIVE; URINE BARBITURATES SCREEN NEGATIVE; URINE BENZODIAZEPINES SCREEN NEGATIVE; URINE COCAINE SCREEN NEGATIVE; URINE MARIJUANA (THC) SCREEN NEGATIVE; URINE METHADONE SCREEN NEGATIVE; URINE PHENCYCLIDINE SCREEN NEGATIVE
[2017-11-29 18:08] LABS: ABSOLUTE EOSINOPHILS # (AUTO) 0.1 10^3/uL (0.0-0.6); ABSOLUTE LYMPHOCYTES (AUTO) 2.3 10^3/uL (0.5-4.7); ABSOLUTE MONOCYTES (AUTO) 0.7 10^3/uL (0.1-1.4); ABSOLUTE NEUT (AUTO) 8.8 10^3/uL (1.7-8.2); BASOPHILS % (AUTO) 0.2 % (0-2); EOSINOPHILS % (AUTO) 0.6 % (0-6); HEMATOCRIT 38.5 % (36.0-47.0); HEMOGLOBIN 12.8 g/dL (12.0-15.5); LYMPHOCYTES % (AUTO) 19.6 % (13-45); MEAN CORPUSCULAR HEMOGLOBIN 28.2 pg (27.0-33.4); MEAN CORPUSCULAR HGB CONC 33.2 g/dL (32.0-36.0); MEAN CORPUSCULAR VOLUME 85 fl (80-97); MONOCYTES % (AUTO) 5.5 % (3-13); PLATELET COUNT 321 10^3/uL (150-450); RED BLOOD COUNT 4.52 10^6/uL (3.72-5.28); RED CELL DISTRIBUTION WIDTH 16.4 % (11.5-14.0); SEGMENTED NEUTROPHILS % (AUTO) 74.1 % (42-78); TOTAL CELLS COUNTED % (AUTO) 100 %; WHITE BLOOD COUNT 11.9 10^3/uL (4.0-10.5)
[2017-11-29] MEDS: PENICILLIN G POTASSIUM 2,500,000 UNIT in DEXTROSE 5%-WATER 50 ML IV SCH (21:50)
[2017-11-29] MEDS ORDERED: FENTANYL/BUPIVACAINE/NS/PF 200 MCG/100 ML RTUINJ EPI ONE (22:05)
[2017-11-29] MEDS ORDERED: EPHEDRINE SULFATE INJ 50 MG/1 ML AMPULE ONE (22:05)
[2017-11-29] MEDS ORDERED: BUPIVACAINE HCL 0.25 % INJ/PF (2.5 MG/1 ML) 30 ML VIAL ONE (22:05)
[2017-11-30] MEDS ORDERED: PENICILLIN G-K 5 MILLION UNIT VIAL ONE (01:45)
[2017-11-30] MEDS: PENICILLIN G POTASSIUM 2,500,000 UNIT in DEXTROSE 5%-WATER 50 ML IV SCH (02:05)
[2017-11-30] MEDS ORDERED: MEASLES,MUMPS&RUBELLA VACC/PF 0.5 ML VIAL SUBCUT PRN (04:50)
[2017-11-30] MEDS ORDERED: OXYTOCIN/NORMAL SALINE 20 UNIT/1,000 ML RTUINJ IV PRN (04:50)
[2017-11-30] MEDS ORDERED: ZOLPIDEM TARTRATE 5 MG TABLET PO PRN (04:50)
[2017-11-30] MEDS ORDERED: BENZOCAINE/MENTHOL AEROSOL SPRAY 56 ML TOP PRN (04:50)
[2017-11-30] MEDS ORDERED: DIBUCAINE 1% OINTMENT 28 GM TP PRN (04:50)
[2017-11-30] MEDS ORDERED: ACETAMINOPHEN WITH CODEINE #3 TABLET PO PRN ×2 (04:50)
[2017-11-30] MEDS ORDERED: DIPH/PERTUSS(ACELL)/TETANUS VAC/PF 0.5 ML SYR (>=10YO) IM PRN (04:50)
--- NOTE | 2017-11-30 05:41 | Delivery Summary ---
Del Sum A-C Datetime Report Generated by CPN: 11/30/2017 05:41 DELIVERY PERSONNEL DELIVERY PERSONNEL: [id number] Delivery Doctor:: Abeba Lofton MD Labor and Delivery Nurse:: Deepika Ashby RN Labor and Delivery Nurse:: Emma Kangatul RN MATERNAL INFORMATION Delivery Anesthesia: Epidural Medications After Delivery: Pitocin Drip 20 Units/1000ml NSS; Other-Please Comment Meds After Delivery Comment: Cytotec 1000mcg per rectum Maternal Complications: None Provider Comments: VFI delivered in NOMI presentation. Loose nuchal cord x 1. Shoulders and body delivered without difficulty. Cord doubly clamped and cut and infant to maternal abdomen. Placenta delivered intact spontaneously. No perineal lacerations. FF at U after placement of cytotec. Mother and baby stable upon provider leaving the room. LABOR SUMMARY EDC: 11/26/2017 00:00 No. Babies in Womb: 1 Attempted: Yes Labor Anesthesia: Epidural LABOR INFORMATION Reason for Induction: Not Applicable Onset of Labor: 11/29/2017 23:48 Complete Dilatation: 11/30/2017 04:33 Oxytocin: N/A Group B Beta Strep: Positive Antibiotics # of Doses: 3 Antibiotics Time of Last Dose: 0203 Name of Antibiotic Given: Penicillin Steroids Given: None Reason Steroids Not Administered: Not Applicable MEMBRANES Membranes Rupture Method: Artificial Rupture of Membranes: 11/29/2017 23:48 Length of Rupture (hr): 4.93 Amniotic Fluid Color: Clear Amniotic Fluid Amount: Moderate Amniotic Fluid Odor: Normal STAGES OF LABOR Stage 1 hr: 4 Stage 1 min: 45 Stage 2 hr: 0 Stage 2 min: 11 Stage 3 hr: 0 Stage 3 min: 3 Total Time in Labor hr: 4 Total Time in Labor min: 59 VAGINAL DELIVERY Episiotomy: None Laceration #1: None Laceration Extension #1: N/A Laceration Repair: Not Applicable Sponge Count Correct: N/A Sharps Count Correct: N/A CSECTION DELIVERY Primary Indication: N/A Secondary Indication: N/A CSection Incidence: N/A Labor: N/A Elective: N/A CSection Incision: N/A BABY A INFORMATION Infant Delivery Date/Time: 11/30/2017 04:44 Method of Delivery: Vaginal Born in Route : No : Successful Forceps: N/A Vacuum Extraction: N/A Shoulder Dystocia : No PRESENTATION/POSITION BABY A Presentation: Cephalic Cephalic Presentation: Vertex Vertex Position: Left Occipital Anterior Breech Presentation: N/A PLACENTA INFORMATION BABY A Placenta Delivery Time : 11/30/2017 04:47 Placenta Method of Delivery: Spontaneous Placenta Status: Delivered SCORES BABY A Heart Rate 1 min: >100 bpm Resp Effort 1 min: Good Cry Reflex Irritability 1 min: Cough or Sneeze or Pulls Away Muscle Tone 1 min: Active Motion Color 1 min: Body [place], Extremities Blue Resuscitation Effort 1 min: Tactile Stimulation SCORE 1 MIN: 9 Heart Rate 5 min: >100 bpm Resp Effort 5 min: Good Cry Reflex Irritability 5 min: Cough or Sneeze or Pulls Away Muscle Tone 5 min: Active Motion Color 5 min: Body [place], Extremities Blue Resuscitation Effort 5 min: Tactile Stimulation SCORE 5 MIN: 9 INFORMATION BABY A Gestational Age at Delivery: 40.4 Gestational Status: Full Term- 39- 40.6 Weeks Outcome : Liveborn Infant Condition : Stable Sex: Female IDENTIFICATION BABY A Verification Date/Time: 11/30/2017 05:34 ID Band Number: [id number] Mother's Name Verified: Yes RN Verifying : S. Lattibeaudeir, RN _ T. Hernandez, RN WEIGHT/LENGTH BABY A Infant Birthweight (gm): 3280 Infant Weight (lb): 7 Infant Weight (oz): 4 Length (in): 19.50 Infant Length (cm): 49.53 CORD INFORMATION BABY A No. Cord Vessels: 3 Nuchal Cord : Around Neck x1, Loose Cord Blood Taken: Yes-For Eval (Mom's Blood Type - or O+) Suction: Mouth; Nose ASSESSMENT BABY A Complications: None Physical Findings at Delivery: Within Normal Limits Infant Respirations: Appears Normal [place] Machine Operator/ALS Called : No Care By: K. William, RN Transferred To: Remains with Mother BABY B INFORMATION : N/A SIGNATURES Signature: with User ID: [email or web address]
[2017-11-30] MEDS ORDERED: IBUPROFEN 800 MG TABLET ONE (07:29)
[2017-11-30] MEDS: IBUPROFEN 800 MG TABLET PO SCH ×3 (07:34→21:06)
[2017-11-30] MEDS ORDERED: PENICILLIN G-K 5 MILLION UNIT VIAL IV SCH (09:46)
[2017-11-30] MEDS ORDERED: SENNOSIDES/DOCUSATE 8.6-50 MG 1 EACH TABLET ONE (09:52)
[2017-11-30] MEDS ORDERED: PRENATAL VITAMIN W DHA CAPSULE PO ONE (09:52)
[2017-11-30] MEDS ORDERED: FERROUS SULFATE 325 MG TABLET PO ONE (09:53)
[2017-11-30] MEDS ORDERED: DOCUSATE SODIUM 100 MG CAPSULE ONE (09:53)
[2017-11-30] MEDS: DOCUSATE SODIUM 100 MG CAPSULE PO SCH ×2 (09:56→18:00)
[2017-11-30] MEDS: SENNOSIDES/DOCUSATE 8.6-50 MG 1 EACH TABLET PO SCH (09:57)
[2017-11-30] MEDS: PRENATAL VITAMIN W DHA CAPSULE PO SCH (09:57)
[2017-11-30] MEDS: FERROUS SULFATE 325 MG TABLET PO SCH ×2 (09:58→18:00)
--- NOTE | 2017-11-30 11:01 | Admission Physical ---
Datetime Report Generated by CPN: 11/30/2017 11:01 CURRENT ADMISSION Hx Assessment: The History has been Reviewed and is Current Chief Complaint: Uterine Contractions Chief Complaint Other: sent in from office for + bloody show and ctx. Indication for Induction: Other Indication for Induction: Term, Intrauterine ; No Active Labor; Intact Membranes Indication for Induction- Other: grand multip, gbs +, post dates. Admit Plan: Admit to Unit; Initiate Labor Augmentation Protocol ALLERGIES Medication Allergies: Yes Medication Allergies: butorphanol (11/29/2017) Medication Allergies: butorphanol (11/21/2017) Medication Allergies: butorphanol (06/10/2017) Latex: No Latex Allergies OBSTETRICAL HISTORY EDC: 11/26/2017 00:00 : 6 Para: 5 Term: 3 : 2 SAB: 0 IAB: 0 Ectopic: 0 Livin Cesareans: 1 VBACs: 3 Multiple Births: 0 Gestational Diabetes: No Rh Sensitization: No Incompetent Cervix: No ANGÉLICA: No Infertility: No ART Treatment: No Uterine Anomaly: No IUGR: No Hx Previous C/S: Yes Macrosomia: No Hx Loss/Stillborn: No PIH: No Hx : No Placenta Previa/Abruption: No Depression/PP Depression: No PTL/PROM: No Post Hemorrhage: No Current Procedures: Ultrasound; NST Obstetrical History Comments: G1 36 weeks, boy G2 c section 32 boy G3 37 weeks baby boy G4 baby boy 38 G5 38 weeks boy G6 current SEE RECORDS Alcohol: No Marijuana : No Cocaine: No Other Illicit Drugs: No Cigarettes: Never Smoker. 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 Heart Disease: No Hosp/Surgery: Yes Autoimmune Disorder: No Anesthetic Complications: No Kidney Disease: No Abnormal Pap Smear: No Neuro/Epilepsy: No Psychiatric Disorders: No Other Medical Diseases: No Hepatitis/Liver Disease: No Significant Family History: No Varicosities/Phlebitis: No Trauma/Violence : No Thyroid Dysfunction: No INFECTIOUS HISTORY Gonorrhea: No Genital Herpes: No Chlamydia: No Tuberculosis: No Syphilis: No Hepatitis: No HIV/AIDS Exposure: No Rash or Viral Illness: No HPV: No PHYSICAL EXAM General: Normal HEENT: Normal Neurologic: Normal Thyroid: Deferred Heart: Normal Lungs: Normal Breast: Normal Back: Normal Abdomen: Normal Genitourinary Exam: Normal Extremities: Normal DTRs: Normal Pelvic Type: Adequate Physical Exam Comments: pelvis proven 6 lbs 13 oz Vital Signs: Reviewed VAGINAL EXAM Dilatation: 4 Effacement: 80 Station: -2 Contraction Comments: 2-5 MEMBRANES Membranes: Intact FETUS A EGA: 40.3 Monitoring: External US FHR- Baseline: 135 Accelerations: 15X15 Decelerations: None FHR Category: Category I Estimated Weight (gm): 3500 Presentation: Vertex Admit Comment: pt presents from office after visit and vag exam, states ctx that are more painful, some bloody show, states active baby, denies lof. Pt has hx of , 1 c/s (G2), 3 successful 's, desires Saw cardiology for abn ekg, has had f/u during the . + GBS, pcn Admit to L _ D start pcn, will plan AROM after adequate tx. Anticipate PLANS FOR LABOR AND DELIVERY Labor and Delivery: None Pain Management: Epidural Feeding Preference: Formula Benefit of Breast Feed Discussed: Yes Circumcision: N/A INFORMED CONSENT Assignment: Christiana Haynes MD Signature: with User ID: [email or web address] : with User ID: [email or web address]
[2017-12-01] MEDS: IBUPROFEN 800 MG TABLET PO SCH ×2 (05:15→14:26)
[2017-12-01 08:31] LABS: HEMOGLOBIN 11.4 g/dL (12.0-15.5); MEAN CORPUSCULAR HEMOGLOBIN 28.1 pg (27.0-33.4); MEAN CORPUSCULAR HGB CONC 32.5 g/dL (32.0-36.0); MEAN CORPUSCULAR VOLUME 86 fl (80-97); PLATELET COUNT 319 10^3/uL (150-450); RED BLOOD COUNT 4.05 10^6/uL (3.72-5.28); RED CELL DISTRIBUTION WIDTH 16.6 % (11.5-14.0); WHITE BLOOD COUNT 16.8 10^3/uL (4.0-10.5)
[2017-12-01 09:03] VITALS: BP 111/78
[2017-12-01] MEDS: SENNOSIDES/DOCUSATE 8.6-50 MG 1 EACH TABLET PO SCH (09:51)
[2017-12-01] MEDS: FERROUS SULFATE 325 MG TABLET PO SCH ×2 (09:51→18:56)
[2017-12-01] MEDS: DOCUSATE SODIUM 100 MG CAPSULE PO SCH ×2 (09:52→18:57)
[2017-12-01] MEDS: PRENATAL VITAMIN W DHA CAPSULE PO SCH (09:52)
--- NOTE | 2017-12-01 10:09 | PDOC PROGRESS REPORT ---
Subjective-OB Progress Note for:: 12/01/17 Subjective: Post day # 1 Pt states she is ready for discharge and the nursery says the baby can be d/c too. States lochia is stable, pain well controlled, voiding without difficulty. Physical Exam (OB) Vital Signs: Temp Pulse Resp BP Pulse Ox 98.0 F 79 16 111/78 99 12/01/17 07:54 12/01/17 07:54 12/01/17 07:54 12/01/17 07:54 12/01/17 07:54 Intake & Output 11/30/17 12/01/17 12/02/17 06:59 06:59 06:59 Weight 64.6 kg - Lochia Lochia Amount: Small 10-25 ml Lochia Color: Rubra/Red - Abdomen Description: Soft Hernia Present: No Fundal Description: Firm, Midline Fundal Height: u/u - u/2 Objective-Diagnostic Laboratory: 12/01/17 07:42 12/01/17 07:42 WBC 16.8 H RBC 4.05 Hgb 11.4 L Hct 35.0 L MCV 86 MCH 28.1 MCHC 32.5 RDW 16.6 H Plt Count 319 Assessment and Plan(PN) - Assessment and Plan (1) , delivered Is this a current diagnosis for this admission?: Yes Plan: routine pp care anticpate d/c home (2) Vaginal delivery Is this a current diagnosis for this admission?: Yes - Time Spent with Patient Time with patient: Less than 15 minutes Critical Time spent with patient: Less than 15 minutes Medications reviewed and adjusted accordingly: Yes - Disposition Anticipated Discharge: Home Within: within 24 hours
--- NOTE | 2017-12-01 10:10 | PDOC DISCHARGE SUMMARY ---
Final Diagnosis Discharge Date: 12/01/17 - Final Diagnosis (1) , delivered Is this a current diagnosis for this admission?: Yes (2) Vaginal delivery Is this a current diagnosis for this admission?: Yes Discharge Data - Discharge Medication Prescriptions: Docusate Sodium [Colace 100 mg Capsule] 100 mg PO BID #60 capsule Ibuprofen [Motrin 800 mg Tablet] 800 mg PO Q8 #60 tablet Home Medications: Ferrous Sulfate [Iron] 325 mg PO DAILY 09/15/17 Pnv No.95/Ferrous Fum/Folic AC [ Vitamins Tablet] 1 tab PO DAILY Atenolol [Tenormin] 25 mg PO DAILY 11/21/17 Docusate Sodium [Colace 100 mg Capsule] 100 mg PO BID #60 capsule 12/01/17 Ibuprofen [Motrin 800 mg Tablet] 800 mg PO Q8 #60 tablet 12/01/17 Gestational Age: 40.4 Reason(s) for Admission: Onset of Labor, Group B Strep Positive Procedures: NST Intrapartum Procedure(s): Spontaneous Vaginal Delivery - [place] Data Baby 1 Female at 1 minute: 9 at 5 minutes: 9 Weight: 3280 kg Home with Mother: Yes Complications: No - Diagnosis Test Laboratory: Temp Pulse Resp BP Pulse Ox 98.0 F 79 16 111/78 99 12/01/17 07:54 12/01/17 07:54 12/01/17 07:54 12/01/17 07:54 12/01/17 07:54 11/29/17 11/29/17 12/01/17 16:30 17:33 07:42 RBC 4.52 4.05 Hgb 12.8 11.4 L Hct 38.5 35.0 L Urine Opiates Screen NEGATIVE - Discharge information/Instructions Discharge Activity: Activity As Tolerated, Pelvic Rest, No tub bath Discharge Diet: Regular Disposition: HOME, SELF-CARE Follow up with: [facility] in: 4, Weeks
[2017-12-01] MEDS ORDERED: INFLUENZA ADLT QUAD (36MOS+) 2017-18 VAC 0.5 ML SYR IM PRN (19:18)
== END 2017-12-01 20:29 | disposition home or self-care (01) | DRG 775 ==
LOC: LC 16:20 → LR 18:02 → 2S 11-30 10:40
PROVIDERS: ADMIT Student in an Organized Health Care Education/Training Program; ATTEND Student in an Organized Health Care Education/Training Program
PROC: 10E0XZZ Delivery of Products of Conception, External Approach (ICD-10-PCS; principal; 2017-11-30)
PROC: 3E0234Z Introduction of Serum, Toxoid and Vaccine into Muscle, Percutaneous Approach (ICD-10-PCS; 2017-11-30)
DX: O48.0 Post-term pregnancy (principal); O99.824 Streptococcus B carrier state complicating childbirth; O69.81X0 Labor and delivery complicated by cord around neck, without compression, not applicable or unspecified; O34.211 Maternal care for low transverse scar from previous cesarean delivery; N85.8 Other specified noninflammatory disorders of uterus; Z3A.40 40 weeks gestation of pregnancy; Z37.0 Single live birth; Z23 Encounter for immunization
CPT/HCPCS: 36415; 80307; 81005; 85025; 85027; 86592; 86850; 86900; 86901; 90686; J2540; J2590; J3490

== ENCOUNTER 2020-02-09 16:48 | Emergency (ER) | payer BC ==
--- NOTE | 2020-02-09 17:17 | ER Document Report ---
ED Medical Screen (RME) - General Chief Complaint: Numbness of Arm Stated Complaint: ARM NUMBNESS Time Seen by Provider: 02/09/20 17:02 Primary Care Provider: DRE STEWART MD [Primary Care Provider] - Follow up as needed Mode of Arrival: Ambulatory Information source: Patient Notes: 30-year-old female presented to ED for complaint of waking up at 3:00 in the mo rning with her heart racing and at first she cannot see anything. She states then when she could see it was very blurry and her left arm was very numb and felt like it was . She states at the time she could not get her words out and she was very scared. She states that it was a well before she could get sentences out but then she was still having trouble talking. She states she still has numbness left shoulder down her left arm. She states her eyes have been twitching off and on during the day. She states her feet she is not like it normally is. But she is speaking in very clear planes complete sentences. She states that her [id number] told her that her thought process was not completely correct and that she was starting over her sentences. I did not notice any of that at this time. She does have no facial droop, no palmar drift, speaking in clear concise sentences. Equal handgrips. Equal leg lifts. Is neurologically intact at this time. She does walk with a even steady gait. Pupils are equal and react to light. States she does have history of tachycardia and a murmur and has had a breast surgery and breast augmentation. She states she does not smoke she occasionally drinks and does not use any drugs. She lives with her family. I have greeted and performed a rapid initial assessment of this patient. A comprehensive ED assessment and evaluation of the patient, analysis of test results and completion of medical decision making process will be conducted by an additional ED providers. TRAVEL OUTSIDE OF THE [place] IN LAST 30 DAYS: No - Related Data Allergies/Adverse Reactions: butorphanol [From Stadol] Allergy (Verified 11/29/17 17:11) Past Medical History - Social History Frequency of alcohol use: None Drug Abuse: None Renal/ Medical History: Denies: Hx Peritoneal Dialysis Past Surgical History: Reports: Hx Breast Surgery, Hx Section Physical Exam - Vital signs Vitals: Temp Pulse Resp BP Pulse Ox 97.8 F 95 16 138/77 H 100 02/09/20 16:53 02/09/20 16:53 02/09/20 16:53 02/09/20 16:53 02/09/20 16:53 Course - Vital Signs Vital signs: Temp Pulse Resp BP Pulse Ox 97.8 F 95 16 138/77 H 100 02/09/20 16:53 02/09/20 16:53 02/09/20 16:53 02/09/20 16:53 02/09/20 16:53 Doctor's Discharge - Discharge Referrals: DRE STEWART MD [Primary Care Provider] - Follow up as needed
--- NOTE | 2020-02-09 18:03 | RADIOLOGY REPORT (SQ) ---
EXAM DESCRIPTION: CT HEAD WITHOUT IMAGES COMPLETED DATE/TIME: 02/09/2020 5:44 pm REASON FOR STUDY: Confusion numbness to the left arm about 3:00 am COMPARISON: None. TECHNIQUE: Axial images acquired through the brain without intravenous contrast. Images reviewed wi th bone, brain and subdural windows. Additional sagittal and coronal reconstructions were generated. Images stored on PACS. All CT scanners at this facility use dose modulation, iterative reconstruction, and/or weight based d osing when appropriate to reduce radiation dose to as low as reasonably achievable (ALARA). [facility]: Dose Right [facility]: CareDose [facility]: Dose Right [facility]: Teradose 4D [facility]: Smart TrulySocial RADIATION DOSE: CT Rad equipment meets quality standard of care and radiation dose reduction techniq ues were employed. CTDIvol: 48.6 mGy. DLP: 856 mGy-cm. mGy. LIMITATIONS: None. FINDINGS: VENTRICLES: Normal size and contour. CEREBRUM: No masses. No hemorrhage. No midline shift. No evidence for acute infarction. Normal gra y/white matter differentiation. No areas of low density in the white matter. CEREBELLUM: No masses. No hemorrhage. No alteration of density. No evidence for acute infarction. EXTRAAXIAL SPACES: No fluid collections. No masses. ORBITS AND GLOBE: No intra- or extraconal masses. Normal contour of globe without masses. CALVARIUM: No fracture. PARANASAL SINUSES: No fluid or mucosal thickening. SOFT TISSUES: No mass or hematoma. OTHER: No other significant finding. IMPRESSION: NORMAL BRAIN CT WITHOUT CONTRAST. EVIDENCE OF ACUTE STROKE: NO. COMMENT: Quality ID # [id number]: Final reports with documentation of one or more dose reduction techniques (e.g., Automated exposure control, adjustment of the mA and/or kV according to patient size, use of iterative reconstruction technique) TECHNICAL DOCUMENTATION: JOB ID: [id number] [email or web address]- All Rights Reserved Reading location - IP/workstation name: [email or web address]
[2020-02-09 18:18] LABS: ABSOLUTE EOSINOPHILS # (AUTO) 0.1 10^3/uL (0.0-0.6); ABSOLUTE LYMPHOCYTES (AUTO) 2.4 10^3/uL (0.5-4.7); ABSOLUTE MONOCYTES (AUTO) 0.5 10^3/uL (0.1-1.4); ABSOLUTE NEUT (AUTO) 4.2 10^3/uL (1.7-8.2); BASOPHILS % (AUTO) 0.7 % (0-2); EOSINOPHILS % (AUTO) 1.6 % (0-6); HEMATOCRIT 39.8 % (36.0-47.0); HEMOGLOBIN 13.5 g/dL (12.0-15.5); LYMPHOCYTES % (AUTO) 32.7 % (13-45); MEAN CORPUSCULAR HEMOGLOBIN 29.7 pg (27.0-33.4); MEAN CORPUSCULAR VOLUME 87 fl (80-97); MONOCYTES % (AUTO) 6.3 % (3-13); PLATELET COUNT 276 10^3/uL (150-450); RED BLOOD COUNT 4.57 10^6/uL (3.72-5.28); RED CELL DISTRIBUTION WIDTH 14.7 % (11.5-14.0); SEGMENTED NEUTROPHILS % (AUTO) 58.7 % (42-78); TOTAL CELLS COUNTED % (AUTO) 100 %; WHITE BLOOD COUNT 7.2 10^3/uL (4.0-10.5)
[2020-02-09 18:30] LABS: ALBUMIN 4.3 g/dL (3.5-5.0); ALKALINE PHOSPHATASE 39 U/L (38-126); ANION GAP 6 (5-19); ASPARTATE AMINO TRANSFERASE 30 U/L (14-36); BILIRUBIN,TOTAL 0.3 mg/dL (0.2-1.3); BLOOD UREA NITROGEN 17 mg/dL (7-20); CALCIUM 9.5 mg/dL (8.4-10.2); CARBON DIOXIDE 25 mmol/L (22-30); CHLORIDE 106 mmol/L (98-107); GLUCOSE 93 mg/dL (75-110); POTASSIUM 3.9 mmol/L (3.6-5.0); TOTAL PROTEIN 7.4 g/dL (6.3-8.2)
[2020-02-09 18:32] LABS: INTERNATIONAL RATION (INR) 0.98
--- NOTE | 2020-02-09 19:51 | ER Document Report ---
ED NIH Stroke Scale - NIH Stroke Scale When completed:: Before Alteplase *: 1. NIH scale should be completed with appropriate accompanying assessment tools. *: 2. The NIH should reflect what the patient is capable of doing and should not be coached by the clinician. 1a. Level of Consciousness: 0=Alert;keenly responsive -: 1=Drowsy -: 2=Obtunded -: 3=Coma/unresponsive or reflex to noxious stimuli. 1a. Responses: 0 1b. Orientation Questions: a. What month is it? -: b. How old are you? -: 0=Answers both questions correctly. -: 1=Answers one question correctly or patient is intubated or has orotracheal trauma. -: 2=Answers neither question correctly. 1c. Response to commands: a. Open and close eyes? -: b. Information Management Manager and release hand? -: Credit is given despite weakness. Demonstration of task is permitted. Substitute command if hands cannot be used. -: 0=Performs both tasks correctly -: 1=Performs one task correctly -: 2=Performs neither task correctly 1c. Responses: 0 2. Gaze: Establish eye contact and instruct patient to "Follow my finger" -: 0=Normal -: 1=Partial gaze palsy. Gaze is abnormal in one or both eyes, but where forced deviation or total gaze paresis is not present. -: 2=Forced deviation or total gaze paresis. 3. Visual Ocasio: Sees fingers in all four quadrants. -: 0=No visual loss. -: 1=Partial hemianopsia. -: 2=Complete hemianopsia. -: 3=Bilateral hemianopsia (including Cortical blindness) 3. Responses: 0 4. Facial Movement: Instruct patient to: -: a. Show me your teeth -: b. Raise your eyebrows -: c. Close your eyes -: d. Smile -: 0=Normal symmetrical movement -: 1=Minor paralysis (flattened nasolabial fold, asymmetry on smiling). -: 2=Partial paralysis (total or near total paralysis of lower face). -: 3=Complete paralysis of upper and lower face 4. Responses: 0 5. Motor functions (left arm): Alternate sides and extend each arm with palms down (90 degrees if sitting or 45 degrees for supine). -: 0=No drift;limb holds for full 10 seconds. -: 1=Drift; limb holds but drifts down before full 10 seconds, but does not hit bed. -: 2=Some effort against gravity; limb cannot get to or maintain position. -: 3=No effort against gravity; limb falls. -: 4=No movement. -: UN=Amputation, joint fusion, explain in comments. 5. Responses (left arm): 0 5. Motor Functions (right arm): Alternate sides and extend each arm with palms down (90 degrees if sitting or 45 degrees for supine). -: 0=No drift;limb holds for full 10 seconds. -: 1=Drift; limb holds but drifts down before full 10 seconds, but does not hit bed. -: 2=Some effort against gravity; limb cannot get to or maintain position. -: 3=No effort against gravity; limb falls. -: 4=No movement. -: UN=Amputation, joint fusion, explain in comments. 5. Responses (right arm): 0 6. Motor Functions (left leg): With patient lying supine, alternate sides and extend each leg (30 degrees always while supine). -: 0=No drift, leg holds position for full 5 seconds -: 1=Drift; leg falls before full 5 seconds but does not hit bed. -: 2=Some effort against gravity, leg falls to bed but some effort against gravity. -: 3=No effort against gravity, leg falls to bed immediately. -: 4=No movement. -: UN=Amputation, joint fusion; explain in comments. 6. Responses (left leg): 0 6. Motor Functions (right leg): With patient lying supine, alternate sides and extend each leg (30 degrees always while supine). -: 0=No drift, leg holds position for full 5 seconds -: 1=Drift; leg falls before full 5 seconds but does not hit bed. -: 2=Some effort against gravity, leg falls to bed but some effort against gravity. -: 3=No effort against gravity, leg falls to bed immediately. -: 4=No movement. -: UN=Amputation, joint fusion; explain in comments. 6. Responses (right leg): 0 7. Limb Ataxia: With eyes open instruct patient to: -: a. "Touch your finger to your nose". -: b. "Touch your heel to your rodriguez" -: 0=Absent -: 1=Present in one limb. -: 2=Present in two limbs. -: UN=Amputation or joint fusion; explain in comments. 7. Responses: 0 8. Sensory: Test sensation using pinprick or noxious stimuli. Test as many body parts as possible. -: 0=Normal;no sensory loss -: 1=Mile to moderate sensory loss (patient feels pin prick but is less sharp on affected side). -: 2=Severe or total sensory loss. 8. Responses: 1 9. Best Language: Instruct patient to: -: a. "Describe what you see in this picture." -: b. "Name the items in this picture." -: c. "Read these sentences." -: 0=No aphasia, normal -: 1=Mild to moderate aphasia. -: 2=Severe aphasia -: 3=Mute, global aphasia, no usable speech or auditory comprehension. 9. Responses: 0 10. Articulation, Dysarthia: Instruct patient to: -: "Read these words" or "Repeat these words" -: 0=Normal -: 1=Mild to moderate; patient may slur some words but can be understood without difficulty. -: 2=Severe; patients speech so slurred as to be unintelligible in the absence of dysphasia. -: UN=Intubated or other physical barrier, explain in comments. 10. Responses: 0 11. Extinction or inattention: 0=No abnormality -: 1= Visual, tactile, auditory, spatial, or personal inattention or extinction to bilateral simulation in one or the sensory modalities. -: 2=Profound john-inattention or john-inattention to more than one modality; does not recognize own hand. 11. Responses: 0 Total Score: 1
--- NOTE | 2020-02-09 19:53 | RADIOLOGY REPORT (SQ) ---
EXAM DESCRIPTION: MRA HEAD WITHOUT IMAGES COMPLETED DATE/TIME: 02/09/2020 7:38 pm REASON FOR STUDY: left sided weakness COMPARISON: MRI brain and CT brain studies same date. TECHNIQUE: Axial 3-D [id number] acquisition imaging performed through the brain in the area of t he [place]. Images reformatted using 3-D MIPS. LIMITATIONS: None. FINDINGS: SOURCE IMAGES: No unexpected findings on source images. No large masses. 3-D MIP: No aneurysm. No occlusions. No significant stenosis. OTHER: No other significant finding. IMPRESSION: NORMAL MRA OF THE [place]. TECHNICAL DOCUMENTATION: JOB ID: [id number] 2010 [employer]- All Rights Reserved Reading location - IP/workstation name: [email or web address]
--- NOTE | 2020-02-09 19:54 | ER Document Report ---
ED General - General Chief Complaint: Numbness of Arm Stated Complaint: ARM NUMBNESS Time Seen by Provider: 02/09/20 17:02 Primary Care Provider: DRE STEWART MD [ACTIVE STAFF] - Follow up as needed Mode of Arrival: Ambulatory Information source: Patient TRAVEL OUTSIDE OF THE [place] IN LAST 30 DAYS: No - HPI Notes: Patient presents complaining of left arm numbness. Patient states that when she went to bed approximately 10 PM last evening she was having some palpitations but otherwise no other significant symptoms. She states she woke up at approximately 3:05 AM and she was sweaty. She had trouble with her vision. She states that her legs felt weak and so did her left arm. She states as well she just "did not feel right". She states she went back to sleep and when she woke up this morning she still felt like her legs are weak but she was able to ambulate. And when her came home from work she asked to be brought to the hospital. She states currently her left arm still has some numbness and feels weak. She denies any other significant symptoms. She denies any previous history of stroke or neurological problems. No history of cardiac disease. No significant past medical history. She states she is takes no current medications daily. Patient symptoms have been intermittent. Nothing known makes it better or worse. No known radiation of the symptoms. They are mild to moderate. - Related Data Allergies/Adverse Reactions: butorphanol [From Stadol] Allergy (Verified 11/29/17 17:11) Past Medical History - General Information source: Patient - Social History Smoking Status: Never Smoker Frequency of alcohol use: None Drug Abuse: None Family History: Reviewed & Not Pertinent Patient has suicidal ideation: No Patient has homicidal ideation: No Renal/ Medical History: Denies: Hx Peritoneal Dialysis Past Surgical History: Reports: Hx Breast Surgery, Hx Section Review of Systems - Review of Systems Constitutional: Malaise, Weakness. denies: Chills, Fever Cardiovascular: Palpitations. denies: Chest pain Respiratory: denies: Cough, Short of breath -: Yes All other systems reviewed and negative Physical Exam - Vital signs Vitals: Pulse Resp BP Pulse Ox 95 16 138/77 H 100 02/09/20 16:49 02/09/20 16:49 02/09/20 16:49 02/09/20 16:49 Interpretation: Normal - General General appearance: Appears well, Alert - HEENT Head: Normocephalic, Atraumatic Eyes: Normal Pupils: PERRL - Respiratory Respiratory status: No respiratory distress Chest status: Nontender Breath sounds: Normal Chest palpation: Normal - Cardiovascular Rhythm: Regular Heart sounds: Normal auscultation Murmur: No - Abdominal Inspection: Normal Distension: No distension Bowel sounds: Normal Tenderness: Nontender Organomegaly: No organomegaly - Back Back: Normal, Nontender - Extremities General upper extremity: Normal inspection, Nontender, Normal color, Normal ROM, Normal temperature General lower extremity: Normal inspection, Nontender, Normal color, Normal ROM, Normal temperature, Normal weight bearing. No: Erica's sign - Neurological Neuro grossly intact: Yes Cognition: Normal Orientation: AAOx4 [place] Coma Scale Eye Opening: Spontaneous [place] Coma Scale Verbal: Oriented [place] Coma Scale Motor: Obeys Commands [place] Coma Scale Total: 15 Speech: Normal Cranial nerves: Normal Cerebellar coordination: Normal Motor strength normal: RUE, LLE, RLE Additional motor exam normals: No: Equal beef grader - Seed Sales Manager is slightly less on the left, Pronator drift Sensory: Altered light touch - Left arm - Psychological Associated symptoms: Normal affect, Normal mood - Skin Skin Temperature: Warm Skin Moisture: Dry Skin Color: Normal Course - Re-evaluation Re-evalutation: 02/09/20 20:17 Patient presents with multiple neurologic complaints do not fit distinct pattern for CVA. These include sweating, vision changes, trouble swallowing, left arm numbness, left arm weakness, and bilateral leg weakness. Head CT, MRI, and MRA are all unremarkable. Laboratories are also unremarkable. EKG is normal. At this time I do not think patient would benefit from further evaluation. - Vital Signs Vital signs: Temp Pulse Resp BP Pulse Ox 97.8 F 95 16 138/77 H 100 02/09/20 16:53 02/09/20 16:53 02/09/20 16:53 02/09/20 16:53 02/09/20 16:53 - Laboratory Result Diagrams: 02/09/20 17:55 02/09/20 17:55 Laboratory results interpreted by me: 02/09/20 17:55 RDW 14.7 H - Diagnostic Test Radiology reviewed: Image reviewed, Reports reviewed - EKG Interpretation by Me EKG shows normal: Sinus rhythm Rate: Normal - 67 Rhythm: NSR Viola/QRS: No: Right axis deviation, Left axis deviation Discharge - Discharge Clinical Impression: Paresthesia and pain of left extremity Condition: Stable Disposition: HOME, SELF-CARE Instructions: Numbness or Paresthesia ([facility]) Additional Instructions: Please call your primary care doctor soon as possible to arrange follow-up Referrals: DRE STEWART MD [ACTIVE STAFF] - Follow up in 3-5 days
--- NOTE | 2020-02-09 19:56 | RADIOLOGY REPORT (SQ) ---
EXAM DESCRIPTION: MRI HEAD WITHOUT IMAGES COMPLETED DATE/TIME: 02/09/2020 7:38 pm REASON FOR STUDY: left sided weakness COMPARISON: MRA [place] same date, separately dictated. TECHNIQUE: Multiplanar imaging includes non-contrasted T1, T2, FLAIR, and diffusion with ADC map seq uences. Images stored on PACS. LIMITATIONS: None. FINDINGS: ANATOMY: No anomalies. Normal vascular flow voids. Pituitary fossa normal. CSF SPACES: Normal in size and contour. No hemorrhage. CEREBRUM: Sulci and gyri normal in size and contour. Normal white matter signal on FLAIR imaging. No evidence of hemorrhage, mass, or extraaxial fluid collection. POSTERIOR FOSSA: No signal alteration. No hemorrhage. No edema, masses or mass effect. Internal deloris tory canals, cerebello-pontine angles, mastoids normal. DIFFUSION IMAGING: Negative for acute or sub-acute infarction. ORBITS: No masses. Globes normal. PARANASAL SINUSES: No fluid levels. Mucosa normal. OTHER: No other significant finding. IMPRESSION: NORMAL MRI OF THE BRAIN WITHOUT INTRAVENOUS GADOLINIUM CONTRAST. EVIDENCE OF ACUTE STROKE: NO. TECHNICAL DOCUMENTATION: JOB ID: [id number] [employer]- All Rights Reserved Reading location - IP/workstation name: [email or web address]
[2020-02-09 20:44] LABS: APPEARANCE,URINE CLEAR; BILIRUBIN,URINE NEGATIVE (NEGATIVE); COLOR,URINE STRAW; GLUCOSE, URINE NEGATIVE (NEGATIVE); KETONES,URINE NEGATIVE (NEGATIVE); PROTEIN,URINE NEGATIVE (NEGATIVE); URINE SPECIFIC GRAVITY 1.006; UROBILINOGEN,URINE NEGATIVE mg/dL (<2.0)
[2020-02-09 20:49] VITALS: BP 113/67
[2020-02-09 20:59] LABS: URINE AMPHETAMINES SCREEN NEGATIVE; URINE BARBITURATES SCREEN NEGATIVE; URINE BENZODIAZEPINES SCREEN NEGATIVE; URINE COCAINE SCREEN NEGATIVE; URINE MARIJUANA (THC) SCREEN NEGATIVE; URINE METHADONE SCREEN NEGATIVE; URINE PHENCYCLIDINE SCREEN NEGATIVE
--- NOTE | 2020-02-09 22:53 | EKG REPORT ---
SEVERITY:- BORDERLINE ECG - SINUS RHYTHM BORDERLINE T ABNORMALITIES, ANTERIOR LEADS : Confirmed by: Carmen Smith 09-Feb-2020 22:52:42
== END 2020-02-09 20:49 | disposition home or self-care (01) ==
LOC: ER 16:48
DX: R20.0 Anesthesia of skin (principal); R52 Pain, unspecified; R61 Generalized hyperhidrosis; H53.8 Other visual disturbances; R13.10 Dysphagia, unspecified; R53.1 Weakness; R00.2 Palpitations; R53.81 Other malaise; Z88.6 Allergy status to analgesic agent; Z88.5 Allergy status to narcotic agent
CPT/HCPCS: 36415; 70450; 70544; 70551; 80053; 80307; 81001; 84703; 85025; 85610; 85730; 93005; 93010; 99284

== ENCOUNTER 2020-03-04 14:24 | Emergency (ER) | payer BC ==
--- NOTE | 2020-03-04 15:31 | ER Document Report ---
ED Medical Screen (RME) - General Chief Complaint: Shortness Of Breath Stated Complaint: SHORTNESS OF BREATH Primary Care Provider: SHAHANA MIRANDA MD [Primary Care Provider] - Follow up as needed TRAVEL OUTSIDE OF THE [place]. IN LAST 30 DAYS: No - HPI Notes: 03/04/20 15:27 30-year-old female presents emergency room with complaints of feeling short of breath while at rest and while going upstairs for the last 2 days as well as a reoccurring cough. Patient also states she had a blood pressure last night of 180/100 which she checked multiple times. Patient states she tried taking a bath to see if this would help with her pressure, she states throughout the night her pressure did eventually come down to 140s over 80s. Patient was recently seen in the emergency room for suspected/potential TIA but was inconclusive though she did have an extensive work-up with an MRI. Patient did not follow-up with her primary care provider or neurologist thereafter. Patient denies any chest pain but was concerned dyspnea on exertion. Which she states is different from the last time she had shortness of breath when she was seen in the emergency room. Denies any new medications, foods, or travel. Patient states her symptoms have become progressively worse with time. No aatj-ahr-nagpcia medications have been tried. Denies any fevers or chills, denies any travel outside of the country or [place]. Has not been in contact with any COVID positive or PE [place] within the last 14 days I have greeted and performed a rapid initial assessment of this patient. A comprehensive ED assessment and evaluation of the patient, analysis of test results and completion of the medical decision making process will be conducted by additional ED providers. PHYSICAL EXAMINATION: GENERAL: Well-appearing, well-nourished and in no acute distress. HEAD: Atraumatic, normocephalic. EYES: Pupils equal round extraocular movements intact, conjunctiva are normal. NECK: Normal range of motion CV: s1, s2 regular LUNGS: No respiratory distress NEUROLOGICAL: Normal speech, normal gait. - Related Data Allergies/Adverse Reactions: butorphanol [From Stadol] Allergy (Verified 03/04/20 14:43) Past Medical History - Social History Chew tobacco use (# tins/day): No Frequency of alcohol use: Rare Drug Abuse: None Renal/ Medical History: Denies: Hx Peritoneal Dialysis Past Surgical History: Reports: Hx Breast Surgery, Hx Section Physical Exam - Vital signs Vitals: Temp Pulse Resp BP Pulse Ox 98.5 F 80 18 130/77 H 100 03/04/20 14:26 03/04/20 14:26 03/04/20 14:26 03/04/20 14:26 03/04/20 14:26 Course - Vital Signs Vital signs: Temp Pulse Resp BP Pulse Ox 98.5 F 80 18 130/77 H 100 03/04/20 14:32 03/04/20 14:26 03/04/20 14:26 03/04/20 14:26 03/04/20 14:26 Doctor's Discharge - Discharge Referrals: SHAHANA MIRANDA MD [Primary Care Provider] - Follow up as needed
--- NOTE | 2020-03-04 15:42 | RADIOLOGY REPORT (SQ) ---
EXAM DESCRIPTION: CHEST SINGLE VIEW IMAGES COMPLETED DATE/TIME: 03/04/2020 3:26 pm REASON FOR STUDY: cough COMPARISON: None. NUMBER OF VIEWS: One view. TECHNIQUE: Single frontal radiographic view of the chest acquired. LIMITATIONS: None. FINDINGS: LUNGS AND PLEURA: No opacities, masses or pneumothorax. No pleural effusion. MEDIASTINUM AND HILAR STRUCTURES: No masses. Contour normal. HEART AND VASCULAR STRUCTURES: Heart normal in size. Normal vasculature. BONES: No acute findings. HARDWARE: None in the chest. OTHER: No other significant finding. IMPRESSION: NO SIGNIFICANT RADIOGRAPHIC FINDING IN THE CHEST. TECHNICAL DOCUMENTATION: JOB ID: [id number] 2010 [employer]- All Rights Reserved Reading location - IP/workstation name: [email or web address]
[2020-03-04 16:04] LABS: ABSOLUTE EOSINOPHILS # (AUTO) 0.1 10^3/uL (0.0-0.6); ABSOLUTE LYMPHOCYTES (AUTO) 2.1 10^3/uL (0.5-4.7); ABSOLUTE MONOCYTES (AUTO) 0.5 10^3/uL (0.1-1.4); ABSOLUTE NEUT (AUTO) 4.6 10^3/uL (1.7-8.2); BASOPHILS % (AUTO) 0.7 % (0-2); EOSINOPHILS % (AUTO) 1.6 % (0-6); HEMATOCRIT 39.3 % (36.0-47.0); HEMOGLOBIN 13.7 g/dL (12.0-15.5); LYMPHOCYTES % (AUTO) 28.5 % (13-45); MEAN CORPUSCULAR HEMOGLOBIN 30.3 pg (27.0-33.4); MEAN CORPUSCULAR HGB CONC 34.8 g/dL (32.0-36.0); MEAN CORPUSCULAR VOLUME 87 fl (80-97); MONOCYTES % (AUTO) 6.8 % (3-13); PLATELET COUNT 275 10^3/uL (150-450); RED BLOOD COUNT 4.51 10^6/uL (3.72-5.28); SEGMENTED NEUTROPHILS % (AUTO) 62.4 % (42-78); TOTAL CELLS COUNTED % (AUTO) 100 %; WHITE BLOOD COUNT 7.4 10^3/uL (4.0-10.5)
[2020-03-04 16:11] LABS: APPEARANCE,URINE SLIGHTLY-CLOUDY; BILIRUBIN,URINE NEGATIVE (NEGATIVE); COLOR,URINE YELLOW; GLUCOSE, URINE NEGATIVE (NEGATIVE); KETONES,URINE NEGATIVE (NEGATIVE); LEUKOCYTE ESTERASE,URINE TRACE (NEGATIVE); NITRITE,URINE NEGATIVE (NEGATIVE); PROTEIN,URINE NEGATIVE (NEGATIVE); UROBILINOGEN,URINE NEGATIVE mg/dL (<2.0)
[2020-03-04 16:21] LABS: ALBUMIN 4.4 g/dL (3.5-5.0); ALKALINE PHOSPHATASE 39 U/L (38-126); ANION GAP 9 (5-19); ASPARTATE AMINO TRANSFERASE 28 U/L (14-36); BILIRUBIN,TOTAL 0.3 mg/dL (0.2-1.3); BLOOD UREA NITROGEN 14 mg/dL (7-20); CALCIUM 9.8 mg/dL (8.4-10.2); CARBON DIOXIDE 24 mmol/L (22-30); CHLORIDE 104 mmol/L (98-107); GLUCOSE 95 mg/dL (75-110); TOTAL PROTEIN 7.5 g/dL (6.3-8.2)
[2020-03-04 18:49] VITALS: BP 122/70
--- NOTE | 2020-03-04 19:36 | ER Document Report ---
Entered by NOEMÍ BOUDREAUX SCRIBE 03/04/201915 Acting as scribe for:LUIS TORRES MD ED Respiratory Problem - General Chief Complaint: Shortness Of Breath Stated Complaint: SHORTNESS OF BREATH Time Seen by Provider: 03/04/20 16:09 Primary Care Provider: SHAHANA MIRANDA MD [Primary Care Provider] - Follow up as needed Information source: Patient Notes: This 30 year old female patient presents to the emergency department today with complaints of a non-productive cough and shortness of breath. Patient states it feels like there is a pressure sitting on her chest and worsens when she is laying down. Patient denies any fever or chills. Patient states she visited the emergency department x2 weeks ago for symptoms of a possible stroke, but the results were inconclusive. TRAVEL OUTSIDE OF THE [place] IN LAST 30 DAYS: No - Related Data Allergies/Adverse Reactions: butorphanol [From Stadol] Allergy (Verified 03/04/20 14:43) Past Medical History - General Information source: Patient - Social History Smoking Status: Never Smoker Cigarette use (# per day): No Chew tobacco use (# tins/day): No Frequency of alcohol use: Rare Drug Abuse: None Family History: Reviewed & Not Pertinent Patient has homicidal ideation: No Past Surgical History: Reports: Hx Breast Surgery, Hx Section Review of Systems - Review of Systems Constitutional: See HPI. denies: Chills, Fever EENT: No symptoms reported Cardiovascular: See HPI Respiratory: See HPI, Cough, Short of breath Gastrointestinal: No symptoms reported Genitourinary: No symptoms reported Female Genitourinary: No symptoms reported Musculoskeletal: No symptoms reported Skin: No symptoms reported Hematologic/Lymphatic: No symptoms reported Neurological/Psychological: No symptoms reported -: Yes All other systems reviewed and negative Physical Exam - Vital signs Vitals: Temp Pulse Resp BP Pulse Ox 98.5 F 80 18 130/77 H 100 03/04/20 14:26 03/04/20 14:26 03/04/20 14:26 03/04/20 14:26 03/04/20 14:26 - General General appearance: Appears well, Alert - HEENT Head: Normocephalic, Atraumatic Eyes: Normal Pupils: PERRL - Respiratory Respiratory status: No respiratory distress Chest status: Nontender Breath sounds: Normal Chest palpation: Normal - Cardiovascular Rhythm: Regular Heart sounds: Normal auscultation Murmur: No - Abdominal Inspection: Normal Distension: No distension Bowel sounds: Normal Tenderness: Nontender - Extremities General upper extremity: Normal inspection. No: Edema General lower extremity: Normal inspection. No: Edema - Neurological Neuro grossly intact: Yes Cognition: Normal Orientation: AAOx4 - Psychological Associated symptoms: Normal affect, Anxious - Skin Skin Temperature: Warm Skin Moisture: Dry Skin Color: Normal Course - Re-evaluation Re-evalutation: 03/04/20 19:31 Patient resting comfortably showing no signs of distress. 03/04/20 19:33 Patient reports that she has not been around anyone ever come of it 19 that she is aware of. Patient does not travel and just does not have any abnormal medical problems at this time she is not immunocompromise and does not have any risk factors to have COVID-19 is a healthy 30-year-old female. Therefore COVID testing is not done at this time. - Vital Signs Vital signs: Temp Pulse Resp BP Pulse Ox 98.1 F 79 16 122/70 99 03/04/20 18:56 03/04/20 18:56 03/04/20 18:56 03/04/20 18:56 03/04/20 18:56 03/04/20 19:31 Vital signs stable pulse ox 99%. - Laboratory Result Diagrams: 03/04/20 15:48 03/04/20 15:48 Laboratory results interpreted by me: 03/04/20 03/04/20 15:30 15:48 Sodium 136.5 L Urine Blood SMALL H Ur Leukocyte Esterase TRACE H 03/04/20 19:31 Laboratories within normal limits trace leukocyte esterase small blood. And urine - Diagnostic Test Radiology reviewed: Image reviewed, Reports reviewed Radiology results interpreted by me: 03/04/20 19:32 Chest x-ray within normal limits no acute process. Discharge - Discharge Clinical Impression: Upper respiratory infection, Acute bronchitis Condition: Stable Disposition: HOME, SELF-CARE Instructions: Upper Respiratory Illness ([facility]) Additional Instructions: Bronchitis You have acute bronchitis. This disease is an infection or inflammation of the air passageways in your lungs. Symptoms usually include cough, low grade fever, shortness of breath, and wheezing. The cough usually persists for a couple of weeks. Most cases of bronchitis get better without antibiotics. We prescribe antibiotics when we believe bacteria are damaging your airways, or if there's high risk the bronchitis will worsen into pneumonia. Increase your fluid intake. A cool mist humidifier may make your lungs more comfortable. An expectorant (cough medicine that loosens phlegm) can help. If you smoke, STOP!!! Recovery from bronchitis can be somewhat slow, but you should see improvement within a day or two. Repeated episodes of bronchitis may result in lung damage -- for example, chronic bronchitis, recurrent pneumonias, or emphysema. Call the doctor if you develop increasing fever, shortness of breath, chest pain, bloody sputum, or otherwise worsen. If you have not improved at all after several days, contact the physician. Prescriptions: Amoxicillin 875 mg PO BID #20 tablet Prednisone [Deltasone 20 mg Tablet] 20 mg PO BID #10 tablet Referrals: SHAHANA MIRANDA MD [Primary Care Provider] - Follow up as needed I personally performed the services described in the documentation, reviewed and edited the documentation which was dictated to the scribe in my presence, and it accurately records my words and actions.
== END 2020-03-04 19:44 | disposition home or self-care (01) ==
LOC: ER 14:24
DX: J20.9 Acute bronchitis, unspecified (principal); J06.9 Acute upper respiratory infection, unspecified; R06.02 Shortness of breath; R05 Cough; Z88.6 Allergy status to analgesic agent; Z88.5 Allergy status to narcotic agent
CPT/HCPCS: 36415; 71045; 80053; 81001; 83735; 83880; 84703; 85025; 85379; 99283

== ENCOUNTER 2020-03-07 11:31 | Emergency (ER) | payer BC ==
--- NOTE | 2020-03-07 12:11 | ER Document Report ---
HPI - HPI Patient complains to provider of: Cough Time Seen by Provider: 03/07/20 11:35 Onset: Other - 4 days Pain Level: Denies Context: Patient presents complaining of cough and congestion for the past 4 days. Patient was seen here 3 days ago and had been diagnosed with bronchitis and placed on steroids and an antibiotic. Patient did follow-up with her primary doctor 2 days ago for recheck and was placed on aspirin and albuterol. Patient states that periodically when she has coughing fits her heart rate will race. Patient is concerned as her spouse has hypertension and she does not want to potentially be exposing him to COVID. Patient is requesting a COVID test which prompted her visit today. Associated Symptoms: Nonproductive cough, Fever - Yesterday. denies: Chest pain, Nausea Exacerbated by: Denies Relieved by: Denies Similar symptoms previously: Yes Recently seen / treated by doctor: Yes - ROS ROS below otherwise negative: Yes Systems Reviewed and Negative: Yes All other systems reviewed and negative - CONSTITUTIONAL Constitutional: REPORTS: Fever - EENT EENT: DENIES: Sore Throat, Congestion - CARDIOVASCULAR Cardiovascular: DENIES: Chest pain - RESPIRATORY Respiratory: REPORTS: Coughing - GASTROINTESTINAL Gastrointestinal: DENIES: Nausea, Patient vomiting - DERM Skin Color: Normal Skin Problems: None Past Medical History - General Information source: Patient - Social History Smoking Status: Never Smoker Frequency of alcohol use: Occasional Drug Abuse: None Occupation: None Lives with: Family Family History: Reviewed & Not Pertinent Patient has homicidal ideation: No - Medical History Medical History: Negative Renal/ Medical History: Denies: Hx Peritoneal Dialysis Past Surgical History: Reports: Hx Breast Surgery, Hx Section Vertical Provider Document - CONSTITUTIONAL Agree With Documented VS: Yes Exam Limitations: No Limitations General Appearance: WD/WN, No Apparent Distress - INFECTION CONTROL TRAVEL OUTSIDE OF THE [place] IN LAST 30 DAYS: No - HEENT HEENT: Atraumatic, Normocephalic - NECK Neck: Normal Inspection, Supple. negative: Lymphadenopathy-Left, Lymphadenopathy-Right - RESPIRATORY Respiratory: No Respiratory Distress, Other - occasional dry cough - CARDIOVASCULAR Cardiovascular: Regular Rate, Regular Rhythm. negative: No Murmur - BACK Back: Normal Inspection - MUSCULOSKELETAL/EXTREMETIES Musculoskeletal/Extremeties: MAEW, FROM, Non-Tender, No Edema - NEURO Level of Consciousness: Awake, Alert, Appropriate Motor/Sensory: No Motor Deficit - DERM Integumentary: Warm, Dry, No Rash Course - Re-evaluation Re-evalutation: 03/07/20 12:10 Offered patient additional evaluation to include lab work. Patient declines at this time stating that she really just came for a COVID test. Patient is agreeable with the influenza test and a chest x-ray at this time. - Vital Signs Vital signs: Temp Pulse Resp BP Pulse Ox 98.7 F 84 17 133/82 H 98 03/07/20 11:42 03/07/20 11:42 03/07/20 11:42 03/07/20 11:42 03/07/20 11:42 - Laboratory Laboratory results interpreted by me: 03/07/20 15:23 Labs- Entire Visit 03/07/20 03/07/20 12:14 12:14 Influenza A (Rapid) NEGATIVE Influenza B (Rapid) NEGATIVE Group A Strep Rapid NEGATIVE - Diagnostic Test Radiology reviewed: Reports reviewed Discharge - Discharge Clinical Impression: covid 19 screening Upper respiratory infection Qualifiers: URI type: unspecified URI Qualified Code(s): J06.9 - Acute upper respiratory infection, unspecified Condition: Stable Disposition: HOME, SELF-CARE Instructions: Upper Respiratory Illness ([facility]) Additional Instructions: Return immediately for any new or worsening symptoms Followup with your primary care provider, call tomorrow to make a followup appointment As a person under investigation for Covid 19, the [place] department of Health and Human Services, division of public health advises you to adhere to the following guidance until your test results are reported to you. If your test result is positive, you will receive additional information from your provider and your local health department at that time. Remain at home until you are cleared by the health provider or public health authorities. Keep a log of visitors to your home, notify any visitors to your home of your isolation status. If you plan to move to a new address or leave the county, notify the local health department in your County. Call your doctor or seek care if you have an urgent medical need. Before seeking medical care, call ahead to get instructions from the provider before arriving at the medical office clinic or hospital. Notify them that you are being tested for the virus that causes Covid 19 so that arrangements can be made, as necessary, to prevent transmission to others in the healthcare setting. Next, notify the local health department in your county. If a medical emergency arises and you need to call 911, inform the first responders that you are being tested for the virus that causes Covid 19. Next, notify the local health department in your county. Referrals: SHAHANA MIRANDA MD [Primary Care Provider] - Follow up tomorrow
--- NOTE | 2020-03-07 12:43 | RADIOLOGY REPORT (SQ) ---
EXAM DESCRIPTION: CHEST SINGLE VIEW IMAGES COMPLETED DATE/TIME: 03/07/2020 11:23 am REASON FOR STUDY: cough COMPARISON: 03/04/2020 EXAM PARAMETERS: NUMBER OF VIEWS: One view. TECHNIQUE: Single frontal radiographic view of the chest acquired. RADIATION DOSE: NA LIMITATIONS: None. FINDINGS: LUNGS AND PLEURA: No opacities, masses or pneumothorax. No pleural effusion. MEDIASTINUM AND HILAR STRUCTURES: No masses. Contour normal. HEART AND VASCULAR STRUCTURES: Heart normal in size. Normal vasculature. BONES: No acute findings. HARDWARE: None in the chest. OTHER: No other significant finding. IMPRESSION: NO ACUTE RADIOGRAPHIC FINDING IN THE CHEST. TECHNICAL DOCUMENTATION: JOB ID: [id number] 2010 [employer]- All Rights Reserved Reading location - IP/workstation name: [email or web address]
[2020-03-07 12:54] LABS: A TYPE INFLUENZA AG NEGATIVE (NEGATIVE); B INFLUENZA AG NEGATIVE (NEGATIVE)
[2020-03-07 14:03] VITALS: BP 118/70
== END 2020-03-07 14:02 | disposition home or self-care (01) ==
LOC: ER 11:31
DX: J06.9 Acute upper respiratory infection, unspecified (principal); R05 Cough; R09.81 Nasal congestion; R50.9 Fever, unspecified; I10 Essential (primary) hypertension; Z20.828 Contact with and (suspected) exposure to other viral communicable diseases
CPT/HCPCS: 71045; 87070; 87635; 87804; 87880; 99283

== ENCOUNTER 2020-08-31 20:46 | Emergency (ER) | payer BC ==
[2020-08-31] MEDS ORDERED: RINGERS SOLUTION,LACTATED 1,000 ML IV ONE (21:46)
[2020-08-31] MEDS ORDERED: METOCLOPRAMIDE HCL INJ/PF 10 MG/2 ML SDV IV ONE (21:46)
--- NOTE | 2020-08-31 21:47 | ER Document Report ---
ED Medical Screen (RME) - General Chief Complaint: Headache Stated Complaint: MIGRAINE/HEART RATE IRREGULAR Time Seen by Provider: 08/31/20 21:38 Primary Care Provider: SHAHANA MIRANDA MD [Primary Care Provider] - Follow up as needed Mode of Arrival: Ambulatory Information source: Patient Notes: HPI; 30-year-old female presents to the emergency room complaining and a persistent headache for the past 4 days. She denies any head trauma or head injury. Denies worst headache of her life. Denies any sudden thunderclap. Denies any history of migraines. States she has been taking Tylenol and Motrin without relief. Does complain of nausea but no vomiting. No fevers. Unsure of status. Denies any photophobia. PE: Alert and oriented x3. PERRLA, EOMI, lungs: Clear to auscultation without rales, rhonchi, wheezes. Heart: Regular rate rhythm without murmurs, rubs, gallops. I have greeted and performed a rapid initial assessment of this patient. A comprehensive ED assessment and evaluation of the patient, analysis of test results and completion of the medical decision making process will be conducted by additional ED providers. I have specifically instructed the patient or family members with the patient to immediately return to any nursing staff should anything change in the patient's condition or with their chief complaint. TRAVEL OUTSIDE OF THE [place] IN LAST 30 DAYS: No - Related Data Allergies/Adverse Reactions: butorphanol [From Stadol] Allergy (Verified 08/31/20 21:36) Past Medical History - Social History Chew tobacco use (# tins/day): No Frequency of alcohol use: None Drug Abuse: None Renal/ Medical History: Denies: Hx Peritoneal Dialysis Past Surgical History: Reports: Hx Breast Surgery, Hx Section Physical Exam - Vital signs Vitals: Temp Pulse Resp BP Pulse Ox 99.3 F 77 16 137/81 H 100 08/31/20 20:59 08/31/20 20:59 08/31/20 20:59 08/31/20 20:59 08/31/20 20:59 Course - Vital Signs Vital signs: Temp Pulse Resp BP Pulse Ox 99.3 F 77 16 137/81 H 100 08/31/20 20:59 08/31/20 20:59 08/31/20 20:59 08/31/20 20:59 08/31/20 20:59 Doctor's Discharge - Discharge Referrals: SHAHANA MIRANDA MD [Primary Care Provider] - Follow up as needed
--- NOTE | 2020-08-31 22:34 | RADIOLOGY REPORT (SQ) ---
EXAM DESCRIPTION: CT HEAD WITHOUT IV CONTRAST COMPLETED DATE/TME: 08/31/2020 21:58 CLINICAL HISTORY: 30 years, Female, headache COMPARISON: February 09, 2020 CT. TECHNIQUE: Noncontrast images of the brain were obtained. Images stored on PACS. All CT scanners at this facility use dose modulation, iterative reconstruction, and/or weight based dosing when appropriate to reduce radiation dose to as low as reasonably achievable (ALARA). [facility]: Dose Right [facility]: CareDose [facility]: Dose Right [facility]: Teradose 4D [facility]: [employer] LIMITATIONS: None. FINDINGS: There is no acute intracranial hemorrhage, abnormal mass effect, or major vascular territorial infarction. The ventricular system and extra axial spaces are within normal limits. The calvarium is intact. There is minimal bilateral maxillary sinus mucosal thickening, measuring 2 to 3 mm, without air-fluid level. IMPRESSION: 1. No intracranial abnormality is seen. 2. Minimal bilateral maxillary sinus mucosal thickening, of uncertain clinical significance. TECHNICAL DOCUMENTATION: Quality ID # [id number]: Final reports with documentation of one or more dose reduction techniques (e.g., Automated exposure control, adjustment of the mA and/or kV according to patient size, use of iterative reconstruction technique) copyright 2011 [employer]- All Rights Reserved
[2020-09-01 01:22] LABS: ABSOLUTE EOSINOPHILS # (AUTO) 0.2 10^3/uL (0.0-0.6); ABSOLUTE LYMPHOCYTES (AUTO) 3.2 10^3/uL (0.5-4.7); ABSOLUTE MONOCYTES (AUTO) 0.6 10^3/uL (0.1-1.4); ABSOLUTE NEUT (AUTO) 3.6 10^3/uL (1.7-8.2); BASOPHILS % (AUTO) 0.4 % (0-2); EOSINOPHILS % (AUTO) 2.2 % (0-6); HEMATOCRIT 41.7 % (36.0-47.0); HEMOGLOBIN 14.2 g/dL (12.0-15.5); MEAN CORPUSCULAR HEMOGLOBIN 30.3 pg (27.0-33.4); MEAN CORPUSCULAR HGB CONC 33.9 g/dL (32.0-36.0); MEAN CORPUSCULAR VOLUME 89 fl (80-97); MONOCYTES % (AUTO) 8.1 % (3-13); PLATELET COUNT 269 10^3/uL (150-450); RED BLOOD COUNT 4.67 10^6/uL (3.72-5.28); RED CELL DISTRIBUTION WIDTH 13.8 % (11.5-14.0); SEGMENTED NEUTROPHILS % (AUTO) 47.3 % (42-78); TOTAL CELLS COUNTED % (AUTO) 100 %; WHITE BLOOD COUNT 7.6 10^3/uL (4.0-10.5)
[2020-09-01 01:53] LABS: ALBUMIN 4.4 g/dL (3.5-5.0); ALKALINE PHOSPHATASE 38 U/L (38-126); ANION GAP 11 (5-19); ASPARTATE AMINO TRANSFERASE 28 U/L (14-36); BILIRUBIN,DIRECT 0.1 mg/dL (0.0-0.4); BILIRUBIN,TOTAL 0.4 mg/dL (0.2-1.3); BLOOD UREA NITROGEN 14 mg/dL (7-20); CALCIUM 9.4 mg/dL (8.4-10.2); CARBON DIOXIDE 22 mmol/L (22-30); CHLORIDE 105 mmol/L (98-107); GLUCOSE 99 mg/dL (75-110); POTASSIUM 4.1 mmol/L (3.6-5.0); TOTAL PROTEIN 7.5 g/dL (6.3-8.2)
[2020-09-01 06:33] VITALS: BP 120/77
[2020-09-01] MEDS ORDERED: IBUPROFEN 600 MG TABLET PO ONE (07:46)
--- NOTE | 2020-09-01 07:52 | ER Document Report ---
ED Headache - General Chief Complaint: Headache Stated Complaint: MIGRAINE/HEART RATE IRREGULAR Time Seen by Provider: 08/31/20 21:38 Primary Care Provider: SHAHANA MIRANDA MD [Primary Care Provider] - Follow up as needed Mode of Arrival: Ambulatory Notes: HPI: 30-year-old female with past medical history as recorded who states 5 days of intermittent right-sided headache. She states that the headache is "painful", worse with touching the right side of the head. No aggravating relieving factors. She denies any trauma, fever, vomiting, weakness or numbness, neck pain, and does have a history of headaches. She also felt some palpitations last evening. She denies any chest pain, cough, shortness of breath, calf pain or leg swelling. She does not believe she is . Alec mondragon has been in the waiting room for an extended period of time and a work-up was ordered including an EKG and a CT scan of the head. Patient states the headache has improved. She denies any double or blurry vision. ROS: See HPI All other review of systems reviewed and otherwise negative Reviewed vital signs and nursing note as charted by RN. PHYSICAL EXAM: CONSTITUTIONAL: Alert and oriented and responds appropriately to questions. Well-appearing; well-nourished HEAD: Normocephalic; atraumatic EYES: PERRL; full extraocular range of motion ENT: Normal nose; no rhinorrhea; moist mucous membranes; pharynx without lesions noted NECK: Supple without meningismus; non-tender; no cervical lymphadenopathy, no masses CARD: Regular rate and rhythm; no murmurs; symmetric distal pulses RESP: Normal chest excursion without splinting or tachypnea; breath sounds clear and equal bilaterally; no wheezes, no rhonchi, no rales ABD/GI: Normal bowel sounds; non-distended; soft, non-tender BACK: The back appears normal and is non-tender to palpation EXT: Normal ROM in all joints; non-tender to palpation; no edema SKIN: No acute lesions noted NEURO: CN 2-12 intact; 5/5 bilateral upper and lower extremity strength with sensation intact to light touch PSYCH: The patient's mood and manner are appropriate. Grooming and personal hygiene are appropriate. TRAVEL OUTSIDE OF THE [place] IN LAST 30 DAYS: No - Related Data Allergies/Adverse Reactions: butorphanol [From Stadol] Allergy (Verified 08/31/20 21:36) Past Medical History - General Information source: Patient - Social History Smoking Status: Never Smoker Chew tobacco use (# tins/day): No Frequency of alcohol use: None Drug Abuse: None Family History: Reviewed & Not Pertinent Renal/ Medical History: Denies: Hx Peritoneal Dialysis Past Surgical History: Reports: Hx Breast Surgery, Hx Section Physical Exam - Vital signs Vitals: Temp Pulse Resp BP Pulse Ox 99.3 F 77 16 137/81 H 100 08/31/20 20:59 08/31/20 20:59 08/31/20 20:59 08/31/20 20:59 08/31/20 20:59 Course - Re-evaluation Re-evalutation: 09/01/20 07:48 Given the above history and physical, with labs and CT scan as recorded, with currently no focal logical deficits, I did check the patient's intraocular pressure which appears normal. Patient does not want/desire any pain medications here. She would like a prescription for Phenergan. I will provide this. EKG shows heart of 63, normal sinus rhythm, normal axis, no obvious ST elevation or depression. Some flattening T waves with incomplete right bundle branch block shown in leads V1 and V2. Flattening T waves in aVL. Given the above history and physical I do believe subarachnoid hemorrhage, acute bacterial meningitis, acute angle-closure glaucoma, CAD, PE, or dissection to be unlikely. - Vital Signs Vital signs: Temp Pulse Resp BP Pulse Ox 99.3 F 71 16 120/77 100 08/31/20 20:59 09/01/20 06:27 08/31/20 20:59 09/01/20 06:27 09/01/20 06:27 - Laboratory Result Diagrams: 09/01/20 00:50 09/01/20 00:50 Discharge - Discharge Clinical Impression: Palpitations Headache Qualifiers: Headache type: unspecified Headache chronicity pattern: unspecified pattern Intractability: not intractable Qualified Code(s): R51.9 - Headache, unspecified Condition: Good Disposition: HOME, SELF-CARE Additional Instructions: Come back immediately for any worsening headache, weakness or numbness, chest pain, calf pain or leg swelling, shortness of breath, or any other acute problems. Please take the Phenergan as needed and follow-up with your primary care physician for reassessment. Prescriptions: Promethazine HCl [Phenergan 25 mg Tablet] 25 mg PO Q6H PRN #10 tablet PRN Reason: Referrals: SHAHANA MIRANDA MD [Primary Care Provider] - Follow up as needed
--- NOTE | 2020-09-01 18:02 | EKG REPORT ---
SEVERITY:- NORMAL ECG - SINUS RHYTHM : Confirmed by: Carmen Smith 01-Sep-2020 18:01:35
--- OUTSIDE RECORDS SUMMARY | 2020-09-02 17:56 | XMS REPORT ---
:1990 [facility] [place] [address] [place] [id number] Care Team Providers Name Role Phone DIXIE WILSON Attending Clinician Unavailable J Luis Attending Clinician Unavailable Allergies, Adverse Reactions, Alerts Allergy Name Allergy Status Severity Reaction(s) Onset Inactive Treat ing Comments Type Date Date Clinician BUTORPHANOL Drug Active U 2017-12TRATE 00:00:0 0 Medications This patient has no known medications. Problems This patient has no known problems. Procedures Procedure Date / Time Performed Performing Clinician Devic e OFFICE/OUTPATIENT VISIT NEW 2018-01-11 09:00:00 MEASURE BLOOD OXYGEN LEVEL 2018-01-11 09:00:00 Results This patient has no known results. Assessments Condition Name Status Diagnosis Date Treating Clinici an Dorsalgia, unspecified Active Radiculopathy, cervical region Active Body mass index (BMI) 22.0-22.9, adult Active Unspecified injury of neck, subsequent Active encounter Encounters Start End Encounter Admission Attending Care Care Encounter Date/Time Date/Time Type Type Clinicians Facility Department ID 2020-03-08 2020-03-08 Outpatient [facility] [id number] 00:00:00 00:00:00 [id number] 2019-06-16 2019-06-16 Outpatient ANGELLA WILSON [facility] [id number] 09:22:00 09:22:00 DIXIE Byrd 2018-01-11 2018-01-11 [id number]:00 09:00:00 [facility] [id number] [facility] [place] Payers Payer Name Policy Type Policy Number Effective Date Expiration D ate Social History This patient has no known social history. Vital Signs This patient has no known vital signs.
== END 2020-09-01 08:33 | disposition home or self-care (01) ==
LOC: ER 20:46
DX: R51.9 Headache, unspecified (principal); R00.2 Palpitations; I45.10 Unspecified right bundle-branch block; Z88.6 Allergy status to analgesic agent; Z88.5 Allergy status to narcotic agent
CPT/HCPCS: 36415; 70450; 80053; 84484; 84703; 85025; 93005; 93010; 99285